=== PATIENT | female | born 1950 | race Caucasian/White ===

== ENCOUNTER 2018-07-18 14:49 | Inpatient (IN) | payer OTHER ==
[~2018-07-18] VITALS: Ht 152.4 cm; Wt 45.0 kg
[2018-07-18] VITALS (18 sets, daily range): BP systolic 77–153; BP diastolic 29–75
[2018-07-18 15:12] LABS: HEMATOCRIT 33.5 % (37.0-47.0); HEMOGLOBIN 10.7 gm/dL (12.0-15.0); MCH 31.9 pg (26.0-34.0); MCV 99.5 fL (80.0-100.0); PLATELET COUNT 310 thou/uL (150-400); RBC 3.37 mil/uL (4.20-5.00); RDW 19.8 % (10.5-14.5); WBC 4.8 thou/uL (4.0-11.0)
[2018-07-18 15:15] LABS: BE(vivo) -2.6 mmol/L (-2 to +3); HCO3 21.1 mmol/L (22.0-26.0); PCO2 32.7 mmHg (35.0-45.0); pH 7.427 (7.360-7.450)
[2018-07-18 15:16] LABS: PO2 45.3 mmHg (80.0-100.0)
[2018-07-18 15:33] LABS: ABSOLUTE NEUTROPHILS 3.2 thou/uL (1.4-8.2); INR 1.4; METAMYELOCYTES 1 %; PROTIME 14.6 Seconds (9.3-11.4)
[2018-07-18 15:35] LABS: ANISOCYTOSIS 2+
[2018-07-18 15:37] LABS: CALCIUM 9.5 mg/dL (8.5-10.1); CREATININE 2.8 mg/dL (0.6-1.0); POTASSIUM 4.4 mmol/L (3.5-5.1)
[2018-07-18 15:45] LABS: ALBUMIN 2.4 g/dL (3.4-5.0); DIRECT BILIRUBIN 0.2 mg/dL (<0.1-0.3); TOTAL BILIRUBIN 0.3 mg/dL (<0.1-1.0); TOTAL PROTEIN 7.4 g/dL (6.4-8.2); TROPONIN-I 0.43 ng/mL (<0.06)
[2018-07-18 15:54] LABS: URINE BILIRUBIN NEGATIVE (Negative); URINE BLOOD 2+ (Negative); URINE CLARITY CLEAR; URINE COLOR YELLOW; URINE GLUCOSE-RANDOM* 1+ (Negative); URINE KETONES NEGATIVE (Negative); URINE NITRITE-REFLEX NEGATIVE (Negative); URINE PROTEIN (DIPSTICK) 2+ (Negative); URINE UROBILINOGEN 0.2 E.U./dl (0.2-1.0)
[2018-07-18 15:57] LABS: URINE LEUKOCYTES-REFLEX 2+ (Negative)
[2018-07-18] MEDS ORDERED: MEGESTROL400 MG/11 PO (16:05)
[2018-07-18] MEDS ORDERED: ALPHAGAN P5 ML OPHTHALMIC (16:05)
[2018-07-18 16:06] LABS: CASTS None Seen /LPF (None Seen); SQUAMOUS 0-3 Few /LPF (0-3); URINE WBC-REFLEX >25 Many /HPF (0-5)
[2018-07-18] MEDS ORDERED: MOXEZA3 ML OPHTHALMIC (16:06)
[2018-07-18] MEDS ORDERED: ROCALTROL0.25 MCG PO (16:06)
[2018-07-18 16:07] LABS: AMORPHOUS URATES Many /LPF (None Seen); URINE RBC 3-10 Few /HPF (0-2)
[2018-07-18] MEDS ORDERED: PROBIOTIC1 EAC1 PO (16:07)
[2018-07-18] MEDS ORDERED: PROTONIX 20 MG20 M1 PO (16:07)
[2018-07-18] MEDS ORDERED: NEPHRO-VITE RX1 TA1 PO (16:07)
[2018-07-18] MEDS ORDERED: COREG25 MG PO (16:07)
[2018-07-18] MEDS ORDERED: COUMADIN 1MG TAB1 M1 PO (16:07)
[2018-07-18] MEDS ORDERED: LORATIDINE 10 M10 M1 PO (16:08)
[2018-07-18] MEDS ORDERED: LOPERAMIDE 2 MG2 M1 PO (16:08)
[2018-07-18] MEDS ORDERED: RENVELA800 MG PO (16:08)
[2018-07-18] MEDS ORDERED: TESSALON PERLE100 MG PO (16:08)
[2018-07-18] MEDS ORDERED: TOBREX3.5 GM OPHTHALMIC (16:09)
[2018-07-18] MEDS ORDERED: LUMIGAN2.5 M1 OPHTHALMIC (16:10)
--- NOTE | 2018-07-18 16:44 | NUR ---
IV TEAM PAGED FOR PICC PLACEMENT
--- NOTE | 2018-07-18 16:45 | NUR ---
ALONSOVEDA [phone]
--- NOTE | 2018-07-18 20:40 | NUR ---
Pt arrived ICU via cart, accompanied by ER staff and RT to room 243 around 8.20 pm. She being admit for Respiratory failure and A-fib with RVR. She is current on vent. She is off sedation , able to follow some commands. Left side hemiparesis notes from recent CVA. A-fib with RVR, cardizem is off due to hypotension. Poor IV access notes, only 1 IV on Rt hand is working. Per report IV team wasn't able to place any central line. Rt chest tunnel dialysis cath notes, will ask Quintin Tripathi if we can use it for tonight. Hx obtained from her Son who is her DPOA. Assessment completed. Care plans are initiated, continue working toward of goals.
--- NOTE | 2018-07-18 22:01 | NUR ---
VASCULAR ACCESS CONSULTED FOR VASCULAR ACCESS ON THIS PT WITH AN HD CATH IN HER RT SUBCLAVIAN. SHE HAS HAD A LT CVA WITH RESIDUAL. PT HAD EJ ATTEMPTS PRIOR TO MY ARRIVAL WITH INFILTRATIONS. PT IS NOT A PICC CANDIDATE DUE TO HER HX. DAUGHTER CONSENTED TO A CL PLACEMENT. PER HOSPITAL P&P HER RT IJ WAS ATTEMPTED X1, RT EJ X1 AND LT IJ X1 AND THE WIRE WOULD NOT THREAD, PT HAS MULTIPLE COLLATERAL VESSELS IN HER JUGULARS AND ATTEMPTS WERE ABORTED. PIV PLACED IN MRII, RT HAND, AND THE LT EJ LINE DISLODGED. PRESSURE HELD TO ABORTED AREAS. ADVISED.
[2018-07-18] MEDS ORDERED: TYLENOL325 MG PO (23:44)
[2018-07-19] VITALS (82 sets, daily range): BP systolic 79–193; BP diastolic 31–89
--- NOTE | 2018-07-19 04:30 | NUR ---
Pt remains on vent and lightly sedated with Versed gtt. Follow some commands intermittently this am. Continue to be on low dose of levophed gtt due to hypotension. RN attempted to wean it off w/o any success. No changes of cardiac rhythms. HR has been 80's to low 100's. Cardizem remains off this am. Continue to monitor her closely.
[2018-07-19 04:33] LABS: CALCIUM 9.2 mg/dL (8.5-10.1); CREATININE 3.4 mg/dL (0.6-1.0); POTASSIUM 4.6 mmol/L (3.5-5.1); TROPONIN-I 0.37 ng/mL (<0.06)
[2018-07-19 04:48] LABS: MCH 32.7 pg (26.0-34.0); MCHC 32.5 g/dL (28.0-37.0); MCV 100.9 fL (80.0-100.0); RBC 2.38 mil/uL (4.20-5.00); RDW 19.8 % (10.5-14.5); WBC 9.8 thou/uL (4.0-11.0)
[2018-07-19 05:14] LABS: HEMOGLOBIN 7.8 gm/dL (12.0-15.0)
--- NOTE | 2018-07-19 08:36 | EKG ---
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1950 Requested By: Nemesio Garduno Order Number: [id number] MD: Kosta Wheeler Measurements Intervals [place] Rate: 121 P: [place]: QRS: -65 QRSD: 115 T: 77 QT: 344 QTc: 488 Interpretive Statements Atrial fibrillation Ventricular premature complex Right bundle branch block Probable inferior infarct, age indeterminate No previous ECG available for comparison Electronically Signed On 07-19-2018 8:36:31 CDT by Kosta Wheeler [email or web address] ��������������������������������������������� <ELECTRONICALLY SIGNED> ���������������������������������������� By: Kosta Wheeler MD, [facility] ��������������������������������������������� 07/19/18 0836 1456 1456 Kosta Wheeler MD, [facility] /EPI
[2018-07-19 11:58] LABS: HEMATOCRIT 24.3 % (37.0-47.0); HEMOGLOBIN 7.6 gm/dL (12.0-15.0); MCH 31.6 pg (26.0-34.0); MCHC 31.1 g/dL (28.0-37.0); MCV 101.7 fL (80.0-100.0); RBC 2.39 mil/uL (4.20-5.00); RDW 19.9 % (10.5-14.5); WBC 12.3 thou/uL (4.0-11.0)
[2018-07-19 12:02] LABS: BE(vivo) -5.1 mmol/L (-2 to +3); HCO3 19.1 mmol/L (22.0-26.0); PCO2 31.7 mmHg (35.0-45.0); pH 7.398 (7.360-7.450); sO2 97.8 % (92.0-98.0)
[2018-07-19] MEDS ORDERED: TRAMADOL 50 MG50 MG PO (14:53)
[2018-07-19] MEDS ORDERED: LOSARTAN POTASS50 MG PO (14:53)
[2018-07-19] MEDS ORDERED: HUMALOG100 UNIT/1 SUBQ (14:53)
[2018-07-19] MEDS ORDERED: ARICEPT 5 MG TAB5 MG PO (14:54)
[2018-07-19] MEDS ORDERED: HYDRALAZINE 2525 MG PO (14:54)
[2018-07-19] MEDS ORDERED: FLONASE 0.05%50 MCG NASAL (14:55)
[2018-07-19] MEDS ORDERED: DILTIAZEM ER180 MG PO (14:55)
[2018-07-19] MEDS ORDERED: RENA-VITE TABL0.8 MG PO (14:56)
[2018-07-19] MEDS ORDERED: LANTUS SUBQ (14:56)
[2018-07-19] MEDS ORDERED: ZANTAC 150MG T150 MG PO (14:56)
--- NOTE | 2018-07-19 14:56 | 2DMMODE ---
[facility] [place] [address] 2 D/M-MODE ECHOCARDIOGRAM Name: GUILLERMINA JOSHI Room #: 243-P ADM IN M.R.#: [id number] ������������� Admission: 07/18/18 ������������� Attend Phys: Jose A Alonso MD Discharge: ��� ������������� ��� Date of : 46 Date of Service: 07/19/18 1456 �� Report #: [id number] �������� ��������������������������������������������[id number] THIS REPORT FOR: //name// APPROVED REPORT Study performed: 07/19/2018 09:55:24 EXAM: Comprehensive 2D, Doppler, and color-flow Echocardiogram Patient Location: ICU Room #: 243 Status: routine BSA: 1.40 HR: 82 bpm BP: 112/34 mmHg Rhythm: Atrial Fibrillation Other Information Study Quality: Adequate Indications Diabetes Atrial Fibrillation Hypertension/HDD 2D Dimensions IVSd: 12.22 (7-11mm) LVOT Diam: 16.41 (18-24mm) LVDd: 31.31 mm PWd: 12.55 (7-11mm) Ascending Ao: 20.32 (22-36mm) LVDs: 17.89 (25-40mm) Aortic Root: 24.87 mm IVC: 13.00 mm Aortic Valve AoV Peak Hai.: 1.37 m/s AO Peak Gr.: 7.48 mmHg LVOT Max P.10 mmHg LVOT Max V: 1.01 m/s KATIE Vmax: 1.57 cm2 Pulmonary Valve PV Peak Hai.: 1.24 m/s PV Peak Gr.: 6.20 mmHg Tricuspid Valve TR Peak Hai.: 2.89 m/s TR Peak Gr.: 33.55 mmHg PA Pressure: 44.00 mmHg [facility] [address] [address] 2 D/M-MODE ECHOCARDIOGRAM Name: GUILLERMINA JOSHI Room #: 243-P ADM IN .R.#: [id number] ������������� Admission: 07/18/18 ������������� Attend Phys: Jose A Alonso MD Discharge: ��� ������������� ��� Date of : 46 Date of Service: 07/19/18 1456 �� Report #: [id number] �������� ��������������������������������������������[id number] Left Ventricle The left ventricle is normal size. Mild concentric left ventricular hypertrophy. Left ventricular systolic function is hyperdynamic. LVEF is >70%. This study is not technically sufficient to allow evaluation of the LV diastolic function due to atrial fibrillation. Right Ventricle The right ventricle is normal size. The right ventricular systolic function is normal. Atria Left atrium is dilated. The right atrium size is normal. Aortic Valve The aortic valve is normal in structure. No aortic regurgitation is present. There is no aortic valvular stenosis. Mitral Valve The mitral valve is normal in structure. There is no mitral valve regurgitation noted. No evidence of mitral valve stenosis. Tricuspid Valve The tricuspid valve is normal in structure. There is trace tricuspid regurgitation. Estimated PAP 44 mmHg. There is moderate pulmonary hypertension. Pulmonic Valve The pulmonary valve is normal in structure. There is no pulmonic valvular regurgitation. Great Vessels The aortic root is normal in size. IVC is normal in size and collapses <50% with inspiration. Pericardium There is no pericardial effusion. <Conclusion> The left ventricle is normal size. LVEF is >70%. Left atrium is dilated. The aortic valve is normal in structure. The mitral valve is normal in structure. The mitral valve is normal in structure. The tricuspid valve is normal in structure. [facility] [place] [address] 2 D/M-MODE ECHOCARDIOGRAM Name: GUILLERMINA JOSHI Room #: 243-P ADM IN M.R.#: [id number] ������������� Admission: 07/18/18 ������������� Attend Phys: Jose A Alonso MD Discharge: ��� ������������� ��� Date of : 46 Date of Service: 07/19/181455 �� Report #: [id number] �������� ��������������������������������������������[id number] There is trace tricuspid regurgitation. Estimated PAP 44 mmHg. There is moderate pulmonary hypertension. The pulmonary valve is normal in structure. There is no pericardial effusion. ��������������������������������������������� <ELECTRONICALLY SIGNED> ���������������������������������������� By: Anibal Holman MD ��������������������������������������������� 07/19/18 1456 55 55 Anibal Holman MD /INF
--- NOTE | 2018-07-19 17:46 | NUR ---
PT IS AWAKE PALE FOLLOWS COMMANDS. GLAUCOMA NOTED TO EYES BILATERAL. LUNGS ARE DIMINISHED. AFIB ON THE [place]. MINIMAL OUTPUT. SMALL BOWEL MOVEMENT TODAY. ABDOMEN IS SOFT. BOWEL SOUNDS ACTIVE. HERRERA TO DD WITH CLEAR YELLOW URINE PRESENT. VERSED DRIP FOR SEDATION INFUSING . PT COMFORTALBE. RIGHT WRIST RESTRAINT. FAMILY AT BEDSIDE FOR SUPPORT. WILL CONTINUE TO ASSESS AND MONITOR PER NURSING.
[2018-07-20] VITALS (19 sets, daily range): BP systolic 90–157; BP diastolic 29–53
[2018-07-20 05:44] LABS: HEMATOCRIT 23.9 % (37.0-47.0); HEMOGLOBIN 7.7 gm/dL (12.0-15.0); MCH 31.6 pg (26.0-34.0); MCHC 32.3 g/dL (28.0-37.0); MCV 97.9 fL (80.0-100.0); RBC 2.44 mil/uL (4.20-5.00); RDW 19.6 % (10.5-14.5); WBC 8.7 thou/uL (4.0-11.0)
[2018-07-20 05:50] LABS: CALCIUM 8.7 mg/dL (8.5-10.1); POTASSIUM 5.5 mmol/L (3.5-5.1)
--- NOTE | 2018-07-20 05:56 | NUR ---
PT SEDATED ON VERSED. ABLE TO FOLLOW COMMANDS AND MOVE RIGHT EXTREMETIES ON SEDATION VACATION. NO APPARENT PAIN. VSS. AFEBRILE. AFIB ON THE MONITORS, RATES IN THE 70S. ON VENT, TOLERATING VENT SETTINGS. OG IN PLACE, OUTPUT NOTED. OUTPUT NOTED FROM HERRERA. FREQUENT TURNS AND ORAL CARE. FAMILY IN DURING THE NIGHT. WILL CONTINUE TO MONITOR PT.
[2018-07-20 05:58] LABS: CREATININE 4.5 mg/dL (0.6-1.0)
--- NOTE | 2018-07-20 08:43 | EKG ---
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 : 1950 Requested By: Susan Koehler Order Number: [id number] MD: Kosta Wheeler Measurements Intervals [place] Rate: 70 P: 0 DC: 153 QRS: 199 QRSD: 81 T: -15 QT: 293 QTc: 317 Interpretive Statements Atrial flutter with variable AV conduction Anterolateral infarct, age indeterminate Compared to ECG 07/18/2018 14:56:01 right bundle-branch block no longer present criteria for anterolateral infarct now present Electronically Signed On 07-20-2018 8:43:34 CDT by Kosta Wheeler [email or web address] ��������������������������������������������� <ELECTRONICALLY SIGNED> ���������������������������������������� By: Kosta Wheeler MD, [facility] ��������������������������������������������� 07/20/18 0843 6 6 Kosta Wheeler MD, [facility] /EPI
--- NOTE | 2018-07-20 08:54 | NUR ---
If tube feedings will start, recommend Nepro at goal of 35ml/hr
--- NOTE | 2018-07-20 10:01 | NUR ---
CM ASSESSMENT: CASE OPENED FOR DC PLANNING. CLINICAL INFO REVIEWED. PT ADMITTED AFTER BECOMING PULSELESS AFTER HEMODIALYSIS AT [facility], [place], HAD CPR AND PULSE RETURNED WITH AFIB RHYTHM. INTUBATED AND ON VENT. MET WITH PT'S SON/DPOA BETTE. PT WITH HX HTN, [facility], RA, RECENT EMBOLIC LEFT STROKE AND DOING SKILLED REHAB AT [facility]. PRIOR TO THAT, PT LIVING WITH SON BETTE AND HIS SPOUSE ALONSO Ahn [place] WAS AMBULATORY WITH A WALKER AND HOME O2 2 L NC PRN. PREVIOUS HOME HEALTH FROM [facility] AND BETTE INDICATES WOULD USES AGENCY AGAIN. [facility] PROVIDES TRANSPORTATION TO COMMUNITY DIALYSIS. BETTE IS AGREEABLE WITH RETURN TO [place] [facility]ILL[facility] WHEN MEDICALLY STABLE IF REMAINS APPROPRIATE. REQUESTED DC POWER DISTRIBUTOR UPDATE [facility]. NO W/E ED PLANNED.
[2018-07-20 16:08] LABS: BE(vivo) 3.8 mmol/L (-2 to +3); HCO3 27.1 mmol/L (22.0-26.0); PCO2 35.9 mmHg (35.0-45.0); PO2 89.6 mmHg (80.0-100.0); pH 7.495 (7.360-7.450); sO2 97.5 % (92.0-98.0)
[2018-07-20 17:43] LABS: INR 1.6
--- NOTE | 2018-07-20 19:17 | NUR ---
CPAP TRIAL TODAY AFTER DIALYSIS- DR GANN CALLED TO DISCUSS BLOOD GAS RESULTS. REPORTED TO SANJUANITA, UNABLE TO ASSESS COGNITION. PT DOES NOT FOLLOW COMMANDS FOR RN OR SON AT BEDSIDE. ORDERS PER SANJUANITA TO PLACE BACK ON AC AND SEDATE ON PROPOFOL AND ATTEMPT ANOTHER CPAP IN AM. UPDATED SON ON PLAN OF CARE. REPORT GIVEN TO BRIAN KEMP.
[2018-07-21] VITALS (24 sets, daily range): BP systolic 90–167; BP diastolic 41–72
--- NOTE | 2018-07-21 03:59 | NUR ---
ASSUMED CARE OF PATIENT AT 1900. VSS, AFEBRILE. UP TO CHAIR, PREFERS TO SLEEP IN IT. STATES PAIN IS MINIMAL, AT A 2. IS NOT NEEDING PAIN MEDS AT THIS TIME. UP WITH MINIMAL ASSIST TO THE BSC. ENCOURAGED TO COUGH AND DEEP BREATHE WELL USE INCENTIVE SPIROMETER. PATIENT CALLS OUT APPROPRIATELY. PROGRESSING TOWARDS POC GOALS.
--- NOTE | 2018-07-21 04:03 | NUR ---
ASSUMED CARE OF PATIENT AT 1900. VSS, AFEBRILE. SEDATION TURNED OFF DURING ASSESSMENT. PT DOES NOT FOLLOW COMMANDS, BUT DOES RAISE RIGHT ARM SPONTANEOUSLY. VERY DIFFICULT TO ASSESS OTHER ABILITIES SHE IS LEGALLY BLIND AND HARD OF HEARING. FAMILY IN TO VISIT, UPDATED ON POC. ALL QUESTIONS ANSWERED. PLANS FOR CPAP TRIAL DURING THE DAY. WILL CONTINUE TO MONITOR.
[2018-07-21 05:30] LABS: HEMOGLOBIN 7.5 gm/dL (12.0-15.0); MCH 31.7 pg (26.0-34.0); MCHC 32.6 g/dL (28.0-37.0); MCV 97.4 fL (80.0-100.0); RBC 2.36 mil/uL (4.20-5.00); RDW 18.9 % (10.5-14.5); WBC 6.6 thou/uL (4.0-11.0)
[2018-07-21 05:42] LABS: INR 1.6; PROTIME 16.7 Seconds (9.3-11.4)
[2018-07-21 05:45] LABS: CALCIUM 8.5 mg/dL (8.5-10.1); POTASSIUM 3.7 mmol/L (3.5-5.1)
[2018-07-21 05:48] LABS: CREATININE 2.3 mg/dL (0.6-1.0)
[2018-07-21 05:51] LABS: ALBUMIN 1.6 g/dL (3.4-5.0); DIRECT BILIRUBIN < 0.1 mg/dL (<0.1-0.3); SGOT 14 U/L (15-37); SGPT 11 U/L (30-65); TOTAL BILIRUBIN 0.3 mg/dL (<0.1-1.0); TOTAL PROTEIN 5.5 g/dL (6.4-8.2)
--- NOTE | 2018-07-21 17:24 | HC ---
[facility] [place] [address] CONSULTATION Name: GUILLERMINA JOSHI Room #: 243-P ADM IN M.R.#: [id number] Admission: 07/18/18 ������������������ Attend Phys: Jose A Alonso MD Discharge: ������������������ Date of : 48 Report #: [id number] THIS REPORT FOR: //name// CC: Jose A RANGEL PCP DATE OF SERVICE: 07/19/2018 PULMONARY CONSULTATION REFERRING PHYSICIAN: Dr. Aolnso. REASON FOR REFERRAL: Cardiac arrest. HISTORY OF PRESENT ILLNESS: The patient is a 68-year-old white female, with end-stage renal disease, brought to the ED following an apparent cardiac arrest at the outpatient dialysis center at [facility]. A pulmonary consultation was requested. According to the family, the patient has had trouble with syncopal episodes during dialysis in the past, but she has never had a cardiac arrest. According to the records, the patient was found to be apneic and pulseless following outpatient dialysis. CPR was given for about a minute. EMS was called. She was found to have pulse, agonal respiration. She was intubated on the field and subsequently brought to the Emergency Department. Her blood pressure at that time was around 130/88 mmHg with a pulse of 130, telemetry showing atrial fibrillation with rapid ventricular response. Blood glucose level was 274. Currently, she is now unresponsive, intubated. PAST MEDICAL HISTORY: Notable for diabetes mellitus type 2, end-stage renal disease, undergoing hemodialysis, apparently she does make some urine; hypertension, history of CVA, anemia, on chronic anticoagulation. She normally gets her care at [facility]; therefore, medical history is somewhat incomplete. PAST SURGICAL HISTORY: As mentioned above. ALLERGIES: TYLENOL NO. 3, STATINS, REACTIONS NOT SPECIFIED. MEDICATIONS: Her medications from home were reviewed, which includes Alphagan, Megace, Rocaltrol, Moxeza, Coreg, Nepro, Coumadin, Protonix, probiotic, Renvela, Imodium, Tessalon Perles, loratadine, Tobrex, Lumigan, Tylenol p.r.n. [facility] [address] [place] [address] CONSULTATION Name: GUILLERMINA JOSHI Room #: 243-P [facility] IN M.R.#: [id number] Admission: 07/18/18 ������������������ Attend Phys: Jose A Alonso MD Discharge: ������������������ Date of : 48 Report #: [id number] FAMILY HISTORY: Noncontributory. SOCIAL HISTORY: Unknown. REVIEW OF SYSTEMS: Deferred as the patient is intubated. PHYSICAL EXAMINATION: GENERAL: She is unresponsive at this time. VITAL SIGNS: Temperature is 99 degrees Fahrenheit, pulse is 75, respiratory rate is 20, blood pressure is 100/40 mmHg. She was hypotensive on admission with a systolic BP in the low 80s, saturation 100%. HEENT: Normocephalic, atraumatic. She is orally intubated. NECK: Supple, without lymphadenopathy or thyromegaly. CHEST: Breath sounds are clear with few scattered crackles in the bases. No wheezes. CARDIOVASCULAR: Normal S1, S2. There are no murmurs or gallop. There is no JVD. There is no carotid bruit. Pulses are 2+/4+ bilaterally. ABDOMEN: Soft, nontender, no organomegaly or masses felt. GENITOURINARY: Deferred. RECTAL: Deferred. EXTREMITIES: There is no edema, cyanosis or clubbing. NEUROLOGIC: Deferred as the patient is not responsive at this time. LABORATORY DATA: Portable chest x-ray shows clear lung jack. CT chest angiogram shows no evidence of pulmonary embolus, mild bilateral ground glass opacities seen consistent with pulmonary edema. Lactic acid is 1.3. CT head is notable for large right middle cerebral artery infarct, no acute process seen. C-spine is notable for degenerative changes, otherwise no acute fracture. Troponin 0.4. Influenza A and B swab is negative. Echocardiogram was grossly unremarkable, ejection fraction of 70%. No obvious valvular abnormalities. No evidence of intracardiac air. Pulmonary pressure measured at 44. EKG shows atrial fibrillation, ventricular premature complexes, right bundle branch block. Electrolytes: Sodium 137, potassium 4.6, chloride 103, CO2 is 21, BUN is 33, creatinine is 3.4. Liver enzymes are grossly unremarkable. WBC 12,300, hemoglobin 7.6, platelets normal. Arterial blood gas revealed pH 7.39, pCO2 of 30, pO2 130 on FiO2 of 30%. Albumin 2.4. IMPRESSION: 1. Cardiac arrest in this 68-year-old white female. She was found to be pulseless, apneic following the hemodialysis. CPR was given for about a minute. On the monitor, she was found to be in atrial fibrillation with rapid ventricular response. Etiology is unclear, but suspect volume depletion as a cause, vasovagal. An embolus is felt to be less likely given the echocardiogram findings. Pulmonary embolus appears to be less likely. The report suggests tiny pulmonary embolus [address] [address] CONSULTATION Name: GUILLERMINA JOSHI Room #: 243-P ADM IN M.R.#: [id number] Admission: 07/18/18 ������������������ Attend Phys: Jose A Alonso MD Discharge: ������������������ Date of : 48 Report #: [id number] in the right lower lung field, which is unlikely the cause for the cardiac arrest. Note, the patient has a history of syncopal episodes during dialysis related to hypotension, volume shift. 2. Acute respiratory failure due to above. Gas exchange so far has improved. Weaning trials when she is more stable. 3. Atrial fibrillation with rapid ventricular response. 4. End-stage renal disease, on chronic hemodialysis. 5. Elevated troponin, likely related to above process. No obvious acute ischemic changes. 6. Diabetes mellitus, type 2. 7. History of cerebrovascular accident, right cerebral artery with left-sided weakness. 8. Apparent history of chronic pancreatic mass has been present for the last 10 years according to records from [facility]. Has questionable liver lesions. Further workup per Gastroenterology. 9. Rheumatoid arthritis. RECOMMENDATION: We will continue mechanical ventilation, wean O2. Weaning trials once medically stable. Deep venous thrombosis and gastrointestinal prophylaxis recommended. Further review of the medical records suggests the patient had a cardiac catheterization at [facility] in January 2018, this was unremarkable. Currently, the patient is felt to have PEA, asystolic cardiac arrest. Currently, this will be addressed by cardiology. Thank you for this consultation. Critical care 1 hour. ��������������������������������������������� <ELECTRONICALLY SIGNED> ���������������������������������������� By: Hardik Gray MD ��������������������������������������������� 07/21/18 1724 1513 0714 Hardik Gray MD /nt
[2018-07-22] VITALS (18 sets, daily range): BP systolic 106–181; BP diastolic 43–74
--- NOTE | 2018-07-22 01:01 | NUR ---
ASSUMED CARE OF PATIENT AT 1900. VSS, AFEBRILE. SEDATION VACATION DONE. MUCH MORE ALERT AND RESPONSIVE TO FAMILY AT BEDSIDE. OPENS EYES, SQUEEZES RIGHT HAND. TOLERATING TUBE FEEDING WELL. BLOOD SUGARS CHECKED PER PROTOCOL. REMAINS ON VENT. WILL CONTINUE TO MONITOR.
[2018-07-22 05:43] LABS: HEMATOCRIT 23.8 % (37.0-47.0); HEMOGLOBIN 7.7 gm/dL (12.0-15.0); MCH 31.6 pg (26.0-34.0); MCHC 32.4 g/dL (28.0-37.0); MCV 97.5 fL (80.0-100.0); RBC 2.44 mil/uL (4.20-5.00); WBC 7.4 thou/uL (4.0-11.0)
[2018-07-22 05:50] LABS: POTASSIUM 3.4 mmol/L (3.5-5.1)
[2018-07-22 05:52] LABS: CREATININE 3.4 mg/dL (0.6-1.0)
[2018-07-22 05:54] LABS: INR 1.2; PROTIME 12.8 Seconds (9.3-11.4)
[2018-07-23] VITALS (55 sets, daily range): BP systolic 70–201; BP diastolic 32–77
--- NOTE | 2018-07-23 06:45 | NUR ---
END OF SHIFT SUMMARY: No significant changes in pt status. Remains a-fib, rate in 70's. On vent with FiO2 30%, sat > 95%. Insulin sliding scale increased to moderate dose as patient blood sugars consistently in 240's. Tolerating tube feeding well per OG, no residuals. No stools this shift. 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
--- NOTE | 2018-07-23 08:52 | EKG ---
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1950 Requested By: Kosta Wheeler Order Number: [id number] MD: Kosta Wheeler Measurements Intervals [place] Rate: 74 P: [place]: QRS: 171 QRSD: 90 T: 0 QT: 253 QTc: 281 Interpretive Statements Atrial fibrillation Anterolateral infarct, age indeterminate Compared to ECG 07/20/2018 08:17:00 No significant change was found Electronically Signed On 07-23-2018 8:51:50 CDT by Kosta Wheeler [email or web address] ��������������������������������������������� <ELECTRONICALLY SIGNED> ���������������������������������������� By: Kosta Wheeler MD, [facility] ��������������������������������������������� 07/23/18 0851 0828 7 Kosta Wheeler MD, [facility] /EPI
--- NOTE | 2018-07-23 13:37 | NUR ---
VASCULAR ACCESS ROUNDS- THIS PATIENT CONTINUES IN THE ICU ON MULTIPLE IV MEDS INCLUDING LEVOPHED. LINE CONTINUES TO BE APPROPRIATE AT THIS TIME
[2018-07-23 13:45] LABS: BE(vivo) 2.9 mmol/L (-2 to +3); HCO3 25.9 mmol/L (22.0-26.0); PO2 106.5 mmHg (80.0-100.0); pH 7.499 (7.360-7.450); sO2 98.3 % (92.0-98.0)
--- NOTE | 2018-07-23 16:20 | NUR ---
SHIFT SUMMARY: ONT THE VENT WAS LIGHTLY SEDATED. COMPLETED HEMODIALYSIS THIS MORNING, TOWARDS THE END OF TREATMENT BECAME HYPOTENSIVE AND WAS ON LEVOPHED FOR A FEW HOURS, ABLE TO WEAN IT OFF. TUBEFEEDING PER OGT AND TOLERATING WELL. AWAKENS AND NODS AND FOLLOWS SIMPLE COMMANDS. CPAP FOR 5HRS TODAY, BECAME TACHYPNIC TOWARDS THE END. WILL CONTINUE TO MONITOR CLOSELY.
[2018-07-24] VITALS (44 sets, daily range): BP systolic 99–145; BP diastolic 34–102
[2018-07-24 05:11] LABS: ALBUMIN 1.8 g/dL (3.4-5.0); CREATININE 3.4 mg/dL (0.6-1.0); PHOSPHORUS 2.8 mg/dL (2.5-4.9); POTASSIUM 3.7 mmol/L (3.5-5.1)
--- NOTE | 2018-07-24 07:31 | NUR ---
PT REMAINS ON THE VENT,DROWSY WITH NO SEDATION, EASILY AROUSABLE, FOLLOWS COMMANDS, AND ANSWERS TO YES/NO QUESTIONS. LEVOPHED AT 1.5MCG. TUBE FEEDING AT GOAL 35ML, NO RESIDUALS .HERRERA NO URINE OUTPUT. RESTRAINTS AND ISOLATION PRECAUTIONS MAINTAINED.
--- NOTE | 2018-07-24 08:34 | EKG ---
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 : 1950 Requested By: Kosta Wheeler Order Number: [id number] MD: Zachariah Esparza Measurements Intervals [place] Rate: 80 P: [place]: QRS: 200 QRSD: 83 T: -7 QT: 373 QTc: 431 Interpretive Statements Atrial flutter Anterolateral infarct, old Compared to ECG 07/23/2018 08:28:07 Atrial fibrillation no longer present Myocardial infarct finding still present Electronically Signed On 07-24-2018 8:34:41 CDT by Zachariah Esparza [email or web address] ��������������������������������������������� <ELECTRONICALLY SIGNED> ���������������������������������������� By: Zachariah Esparza MD ��������������������������������������������� 07/24/18 0834 3 3 Zachariah Esparza MD /ANGEL
[2018-07-24 11:11] LABS: BE(vivo) 3.8 mmol/L (-2 to +3); HCO3 27.5 mmol/L (22.0-26.0); PCO2 37.7 mmHg (35.0-45.0); PO2 108.9 mmHg (80.0-100.0); pH 7.481 (7.360-7.450); sO2 98.3 % (92.0-98.0)
--- NOTE | 2018-07-24 17:42 | NUR ---
SHIFT SUMMARY: ON THE VENT, NO SEDATION AND IS CALM AWAKENS WHEN NAME IS CALLED AND NODS TO Y/N QNS. LEVO WEANED OFF THIS AFTERNOON. TOLERATING TUBEFEEDING W/O RESIDUALS. CPAP TRIAL TODAY. SHARON MORALES'Ngoc EARLIER TODAY. FAMILY UPDATED ON POC. WILL CONTINUE TO MONITOR.
[2018-07-25] VITALS (60 sets, daily range): BP systolic 98–200; BP diastolic 32–85
[2018-07-25 05:12] LABS: MCH 31.7 pg (26.0-34.0); MCHC 32.9 g/dL (28.0-37.0); MCV 96.2 fL (80.0-100.0); RBC 1.94 mil/uL (4.20-5.00); RDW 19.1 % (10.5-14.5); WBC 10.8 thou/uL (4.0-11.0)
[2018-07-25 05:14] LABS: HEMATOCRIT 18.7 % (37.0-47.0); HEMOGLOBIN 6.2 gm/dL (12.0-15.0)
[2018-07-25 05:15] LABS: INR 1.2; PROTIME 12.3 Seconds (9.3-11.4)
[2018-07-25 05:20] LABS: ALBUMIN 1.7 g/dL (3.4-5.0); CREATININE 4.3 mg/dL (0.6-1.0); PHOSPHORUS 3.5 mg/dL (2.5-4.9); POTASSIUM 3.8 mmol/L (3.5-5.1)
[2018-07-25 05:48] LABS: BE(vivo) 2.3 mmol/L (-2 to +3); HCO3 25.8 mmol/L (22.0-26.0); PCO2 34.8 mmHg (35.0-45.0); PO2 110.8 mmHg (80.0-100.0); pH 7.488 (7.360-7.450); sO2 98.4 % (92.0-98.0)
--- NOTE | 2018-07-25 08:53 | EKG ---
[address] [address] ELECTROCARDIOGRAM REPORT Name: GUILLERMINA JOSHI Room #: 243-P ADM IN M.R.#: [id number] ������������������ Admission: 07/18/18 ������������������ Attend Phys: Jose A Alonso MD Discharge: ������������������ Date of : 46 Report #: [id number] ����������������������������������������������������������������� [id number] THIS REPORT FOR: //name// 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1950 Requested By: Kosta Wheeler Order Number: [id number] MD: Zachariah Esparza Measurements Intervals [place] Rate: 73 P: CT: QRS: -18 QRSD: 93 T: 184 QT: 466 QTc: 514 Interpretive Statements Atrial fibrillation Borderline left axis deviation Possible lateral ischemia Prolonged QT interval Compared to ECG 07/24/2018 07:44:36 Electronically Signed On 07-25-2018 8:53:12 CDT by Zachariah Esparza [email or web address] ��������������������������������������������� <ELECTRONICALLY SIGNED> ���������������������������������������� By: Zachariah Esparza MD ��������������������������������������������� 07/25/18 0853 1 1 Zachariah Esparza MD /ANGEL
--- NOTE | 2018-07-25 11:16 | HC ---
[facility] [place] [address] CONSULTATION Name: GUILLERMINA JOSHI Room #: 243-P ADM IN M.R.#: [id number] Admission: 07/18/18 ������������������ Attend Phys: Jose A Alonso MD Discharge: ������������������ Date of : 48 Report #: [id number] THIS REPORT FOR: //name// CC: Jose A Alonso NO PCP REASON FOR CONSULTATION: End-stage renal disease. REASON FOR PRESENTATION: Post collapse after finishing her dialysis in unit. HISTORY OF PRESENT ILLNESS: This is a 68-year-old who dialyzes every Monday, Monday and Monday at the [facility]. Details of the history are not available given the patient's mental status. I am not really sure about her past medical history, but it looks like that the patient has been maintained on dialysis every Monday, Monday and Monday for some time. The patient was found in agonal respiratory status with some pulse. She was intubated. Blood pressure on arrival was 130/88, heart rate was 130. She was in AFib. Blood sugar was 274. The details of the history are not available given the fact that the patient is currently intubated. I am consulted to manage her end-stage renal disease. She is known to have AFib, flutter, ESRD and maintained on dialysis. She is also known to have rheumatoid arthritis. CTA of the chest revealed possible pancreatic tail mass with some liver lesions. She had pathological size mediastinal adenopathy with potential tiny lung pulmonary embolism. PAST MEDICAL HISTORY: 1. End-stage renal disease. 2. AFib and flutter. 3. Hyperlipidemia. 4. Hypertension. 5. CVA. 6. Status post code 31 minute. REVIEW OF SYSTEMS: Unobtainable given the patient's mental status. SOCIAL HISTORY: She resides in the [facility]. No reported drug or alcohol abuse. FAMILY HISTORY: Unobtainable given the patient's mental status. REVIEW OF SYSTEMS: Unobtainable given the patient's mental status. ADDITIONAL PAST MEDICAL HISTORY: 1. Rectus sheath hematoma. 2. Legal blindness. 3. Brain aneurysm post-clipping. 4. Chronic pancreatitis. [facility] [address] [address] CONSULTATION Name: GUILLERMINA JOSHI Room #: 243-P [facility] IN .R.#: [id number] Admission: 07/18/18 ������������������ Attend Phys: Jose A Alonso MD Discharge: ������������������ Date of : 48 Report #: [id number] PHYSICAL EXAMINATION: GENERAL: She is intubated and sedated. VITAL SIGNS: Most recent vitals revealed a blood pressure of 111/34 on a low dose of Levophed, pulse rate is 98. HEAD AND NECK: ET tube in place. CHEST: Decreased air entry bilaterally. CARDIOVASCULAR: No rub. ABDOMEN: Soft, nontender. LOWER EXTREMITIES: No edema. LABORATORY VALUES: Hemoglobin is down to 7.8. Blood gas showed an O2 sat of 77, pCO2 of 45. White blood cell count was 9.8. Sodium was 137, potassium was 4.6, BUN was 33, creatinine 3.4. Troponin was mildly elevated. Cultures are pending. ASSESSMENT, IMPRESSION, PLAN: 1. End-stage renal disease. 2. Post arrest. 3. Elevated troponin. 4. Respiratory failure. 5. Chronic pancreatitis. 6. Cerebrovascular accident. 7. Pancreatic tail mass, chronic. 8. We will continue to dialyze the patient every Monday, Monday and Monday. It does look like that her event was PEA, asystole; however, she responded very well to our CPR and reverted to sinus rhythm with good blood pressure in less than one minute. Cardiology is following and managing her rhythm issues. She is maintained on low dose Levophed and we will wean off. Pulmonary will manage her vent issues. ��������������������������������������������� <ELECTRONICALLY SIGNED> ���������������������������������������� By: Ab Santamaria MD ��������������������������������������������� 07/25/18 1116 0919 2238 David Lugo MD /nt
[2018-07-25 12:35] LABS: HEMATOCRIT 21.7 % (37.0-47.0); HEMOGLOBIN 7.5 gm/dL (12.0-15.0)
[2018-07-25 17:51] LABS: HEMOGLOBIN 6.9 gm/dL (12.0-15.0)
[2018-07-25 17:54] LABS: HEMATOCRIT 19.8 % (37.0-47.0)
--- NOTE | 2018-07-25 19:15 | NUR ---
SHIFT SUMMARY: PT PROGRESSING. PT ON CPAP TRIAL FOR SEVERAL HOURS, WELL TOLERATED. REPLACED ON ASSIST CONTROL PER RESPIRATORY THERAPIST. WHEN SUCTIONED WHILE ON CPAP, PT HAD LARGE AMOUNT THIN BLOOD SECRETION FROM ETT. AFIB, TOLERATING TUBE FEEDING, DURING DIALYSIS- PRBC 1 UNIT ADMINISTERED BY WALTER, TOLERATING TUBE FEEDING, NO RESIDUALS. AUTOMOTIVE SALESPERSON AND 350CC FLUID REMOVED, INCONTINENT OF SMALL AMOUNT PINK URINE X 3, LARGE LIGHT BROWN/YELLOWISH STOOL. SEE ASSESSMENT FOR FURTHER DETAILS. REPEAT HG 6.9/HCT 19.8, CALLED TO DR. ROACH. ADDITIONAL PRBC UNIT ORDERED. FAMILY UPDATED DURING SHIFT ON PT STATUS.
[2018-07-25 22:55] LABS: BE(vivo) 3.2 mmol/L (-2 to +3); HCO3 26.4 mmol/L (22.0-26.0); PCO2 34.9 mmHg (35.0-45.0); PO2 106.3 mmHg (80.0-100.0); pH 7.496 (7.360-7.450); sO2 98.3 % (92.0-98.0)
[2018-07-26] VITALS (56 sets, daily range): BP systolic 99–228; BP diastolic 34–78
[2018-07-26 06:54] LABS: HEMATOCRIT 26.5 % (37.0-47.0); MCH 30.3 pg (26.0-34.0); MCHC 34.6 g/dL (28.0-37.0); RBC 3.03 mil/uL (4.20-5.00); RDW 19.9 % (10.5-14.5); WBC 9.1 thou/uL (4.0-11.0)
[2018-07-26 06:55] LABS: HEMOGLOBIN 9.2 gm/dL (12.0-15.0); MCV 87.5 fL (80.0-100.0)
[2018-07-26 07:15] LABS: INR 1.5; PROTIME 15.4 Seconds (9.3-11.4)
[2018-07-26 07:17] LABS: ALBUMIN 1.8 g/dL (3.4-5.0); CALCIUM 8.8 mg/dL (8.5-10.1); PHOSPHORUS 3.1 mg/dL (2.5-4.9); POTASSIUM 3.9 mmol/L (3.5-5.1)
[2018-07-26 07:20] LABS: CREATININE 2.8 mg/dL (0.6-1.0)
--- NOTE | 2018-07-26 07:23 | NUR ---
PATIENT IS SLOWLY PROGRESSING IN HER CARE PLAN. VITAL SIGNS STABLE WITH NURSE NOT PERCEIVING ANY PAIN OR NAUSEA ON BEHALF OF PATIENT. BREATHING STABLE ON VENTILATOR EVIDENCED BY OXYGEN SATURATION READINGS OPTIMAL RANGE THROUGHOUT SHIFT. VENTILATOR CARE PROVIDED PER PROTOCOL. PATIENT IS ABLE TO OPEN EYES AND COMMUNICATE WITH BASIC YES/NO HEAD MOVEMENTS. BLOOD TRANSFUSION PROVIDED EARLY IN SHIFT TO GOOD AFFECT. CONTINUOUS TUBE FEED TOLERATED. PATIENT WAS TURNED FREQUENTLY AND PROVIDED BATH AND LINEN CHANGE THIS MORNING. CONTINUE PLAN OF CARE.
[2018-07-26 09:17] LABS: BE(vivo) 4.3 mmol/L (-2 to +3); HCO3 28.3 mmol/L (22.0-26.0); PCO2 39.8 mmHg (35.0-45.0); sO2 89.2 % (92.0-98.0)
[2018-07-26 09:19] LABS: PO2 52.5 mmHg (80.0-100.0)
[2018-07-26 09:30] LABS: BE(vivo) 3.4 mmol/L (-2 to +3); HCO3 26.7 mmol/L (22.0-26.0); PCO2 35.5 mmHg (35.0-45.0); pH 7.494 (7.360-7.450); sO2 98.2 % (92.0-98.0)
[2018-07-26 10:08] LABS: % SATURATION 49 % (20-39); IRON 57 ug/dL (50-170); TIBC 116 ug/dL (250-450)
--- NOTE | 2018-07-26 10:41 | NUR ---
FOLLOWIING FOR DC PLANNING. CLINICAL INFO REVIEWED. PT REMAINS INTUBATED WITH DAILY CPAP TRIALS. VERY DEBILITATED. AWAKE AND FOLLOWS COMMANDS. CONITNUING HD M-W-. REQUEST DC APARTMENT COMMUNITY MANAGER FAX CLINICAL UPDATE TO [facility] PT FROM SKILLED REHAB AT [facility]. SPOKE WITH PT'S SON/DPSUMAN AMOS BRIEFLY THIS AM.
[2018-07-26 11:03] LABS: FOLIC ACID 19.8 ng/mL (8.6-58.9)
--- NOTE | 2018-07-26 14:39 | NUR ---
FAXED CLINICAL UPDATE TO [facility] WITH SHERLY IN ADM. THAT UPDATE FAXED. DCP TO FOLLOW.
--- NOTE | 2018-07-26 16:29 | NUR ---
PT IS ALERT AND EXTUBATED TODAY. FAMILY AT BEDSIDE FOR SUPPORT. ON 40 PERCENT FACE SHIELD OXYGEN SATURATION 100 PERCENT. LUNGS ARE COARSE TO DIMINISHED. AND WHEEZY NOTED. AFIB ON THE COIL SHAPER. ONE LARGE YELLOW CAREY BOWEL MOVEMENT. SENT FOR OCCULT NLOOD TO LAB. PT IS BLIND WITH CATARACTS. RIGHT CHEST TESIO CATHETER. PAIN MEDS GIVEN FOR COMFORT GENERALIZED PAIN NOTED. OUT OF RESTRAINTS. WILL CONINTUE TO MONITOR AND ASSESS PER NURSING.
[2018-07-27] VITALS (30 sets, daily range): BP systolic 94–219; BP diastolic 26–91
--- NOTE | 2018-07-27 06:01 | NUR ---
PT APX1. MAKAH. UNABLE TO UNDERSTAND SPEECH AT TIMES. MEDICATED FOR PAIN. AFEBRILE. ON 3L NC, TOLERATING ACTIVITY. AFIB ON THE MONITOR, HR IN THE 120 AT TIMES, NOT SUSTAINED. NPO CURRENTLY, SPEECH CONSULTED. FREQUENT TURN AND ORAL CARE. NO COMPLAINS PRESENTLY. WILL CONTINUE TO MONITOR
[2018-07-27 06:17] LABS: INR 1.4; PROTIME 14.7 Seconds (9.3-11.4)
[2018-07-27 06:47] LABS: ALBUMIN 2.1 g/dL (3.4-5.0); CALCIUM 9.3 mg/dL (8.5-10.1); CREATININE 3.7 mg/dL (0.6-1.0); PHOSPHORUS 4.2 mg/dL (2.5-4.9); POTASSIUM 4.1 mmol/L (3.5-5.1)
[2018-07-27 08:07] LABS: HEMATOCRIT 28.9 % (37.0-47.0); HEMOGLOBIN 9.8 gm/dL (12.0-15.0); MCH 30.1 pg (26.0-34.0); MCHC 33.7 g/dL (28.0-37.0); MCV 89.3 fL (80.0-100.0); RBC 3.24 mil/uL (4.20-5.00); RDW 19.9 % (10.5-14.5); WBC 11.3 thou/uL (4.0-11.0)
--- NOTE | 2018-07-27 10:29 | NUR ---
FOLLOWING FOR DC PLANNING. CLINICAL INFO REVIEWED. PT EXTUBATED 07/26. HD TODAY. REMAIN VERY DEBILITATED. NEEDS PT/OT/ST MINO. NO WEEK END DC PLANNED A ND UPDATE TO [facility].
--- NOTE | 2018-07-27 14:03 | NUR ---
FAXED CLINICAL UPDATE TO [facility]POKE WITH SHERLY IN ADM. SHE RECEIVED UPDATE AND THAT JOLLY. ANDREW SUNDAY 07/30. DCP TO FOLLOW.
[2018-07-27 18:02] LABS: BE(vivo) 2.1 mmol/L (-2 to +3); PCO2 32.8 mmHg (35.0-45.0); PO2 68.5 mmHg (80.0-100.0); sO2 95.2 % (92.0-98.0)
--- NOTE | 2018-07-28 03:37 | NUR ---
ALERT TO SELF, KNOWS HER BIRTHDATE, BUT SOMETIMES SPEECH IS HARD TO UNDERSTAND. LEFT HEMIPARESIS, IRREGULAR PUPILS, HX OF GLAUCOMA. FOLLOW COMMANDS. AFIB ON THE MONITOR, PULSES 1+/1+. EDEMA 1+ ON BOTH HANDS. WHEEZY, COARSE TO RONCHI ON BOTH UPPER LOBES, DIMINISHED ON BOTH LOWER LOBES. 02 AT 2L/NC. DENIES PAIN. BM NOTED. MAINTAINED ON ASPIRATION PRECAUTION. RIGHT SUBCLAVIAN DILAYSIS CATH C/D/I. LEFT IJ TRIPLE LUMEN DRAWS BLOOD AND FLUSHES WELL. REDNESS ON THE COCCYX NOTED. TURNED TO SIDES. PERIANAL CARE DONE. ORAL CARE DONE. 00:20>WHEEZY, LABORED BREATHING. BREATHING TREATMENT DONE BY RT 02:46>BS 35. D50 GIVEN. APPLE JUICE AND APPLE SAUCE GIVEN 03:13>BS 222. FF UP POC.
[2018-07-28 04:14] LABS: HEMATOCRIT 25.6 % (37.0-47.0); HEMOGLOBIN 8.7 gm/dL (12.0-15.0); MCH 30.1 pg (26.0-34.0); MCHC 33.9 g/dL (28.0-37.0); MCV 88.8 fL (80.0-100.0); RBC 2.88 mil/uL (4.20-5.00); WBC 13.4 thou/uL (4.0-11.0)
[2018-07-28 04:24] LABS: CALCIUM 8.8 mg/dL (8.5-10.1); PHOSPHORUS 3.7 mg/dL (2.5-4.9); POTASSIUM 4.1 mmol/L (3.5-5.1); PROTIME 23.8 Seconds (9.3-11.4)
[2018-07-28 04:31] LABS: CREATININE 2.4 mg/dL (0.6-1.0); INR 2.3
[2018-07-28 08:00] VITALS: BP 161/69
[2018-07-28 11:19] VITALS: BP 107/39
[2018-07-28 16:39] VITALS: BP 137/36
[2018-07-28 19:08] VITALS: BP 144/74
[2018-07-29 00:13] VITALS: BP 143/65
--- NOTE | 2018-07-29 03:47 | NUR ---
ASSUMED CARE AT 1900; PT. SLEEPING; NO RELATIVES AT BED SIDE; DURING ASSESSMENT PT. ALERT TO PERSON; REFUSED TAKING PO MEDICATION; EXPLAINED THE NEED OF PO MEDICATION ORDER; ABLE TO HAVE MOST PART OF PO MEDICATION; AROUND 2200 SON AT BED SIDE; EDUCATED ABOUT THE NEED OF KEEPING DOOR OPEN; ST. UNDERSTANDING; AT MIDNIGHT BS 173; SON REFUSED INSULIN; ST. PT. USUALLY RUNS HIGH AND 173 IS LOW FOR HER BASELINE THEREFORE HE RATHERS NOT TO GIVE INSULIN; PT. HAD 2 BM; ABLE TO REST DURING THE NIGHT; ASSESSMENT CHARGED; FOLLOWING POC; WILL PASS ON REPORT.
[2018-07-29 04:12] VITALS: BP 150/52
[2018-07-29 05:20] LABS: INR 3.2; PROTIME 33.3 Seconds (9.3-11.4)
[2018-07-29 09:10] VITALS: BP 140/55
[2018-07-29 11:30] VITALS: BP 117/59
[2018-07-29 16:33] VITALS: BP 132/54
[2018-07-29 19:25] VITALS: BP 156/62
--- NOTE | 2018-07-29 19:53 | NUR ---
ASSUMED CARE OF PT AT 0700. PT ALERT ORIENTED TO SELF. PT WAS DIFFICULT TO UNDERSTAND BUT BETTER WHEN DENTURES PUT IN. PT HAS POOR APETITE AND NUTRITIONAL SUPPLEMENT ORDERED - NEPRO. PT ENCOURAGED TO EAT AND DRINK. PT VITALS WITHIN NORMAL LIMITS AND PT WAS AFIB WITH CONTROLLED RATE ON TELEMETRY. PT WORKED WITH PHYSICAL THERAPY TODAY AND DANGLED ON SIDE OF BED WITH MAX ASSIST. FAMILY AT THE BEDSIDE AND VERY INVOLVED IN PATIENT CARES. WILL CONT WITH POC.
--- NOTE | 2018-07-29 21:16 | EKG ---
[address] [address] ELECTROCARDIOGRAM REPORT Name: GUILLERMINA JOSHI Room #: 216-P ADM IN M.R.#: [id number] ������������������ Admission: 07/18/18 ������������������ Attend Phys: Jose A Alonso MD Discharge: ������������������ Date of : 48 Report #: [id number] ����������������������������������������������������������������� [id number] THIS REPORT FOR: //name// [facility] Test Date: 2018-07-27 Test Time: 07:45:19 Pat Name: GUILLERMINA JOSHI Department: Room: 216 Gender: F Web Solutions Architect: NYDIA : 1950 Requested By: Zachariah Esparza Order Number: [id number] MD: Zachariah Esparza Measurements Intervals [place] Rate: 104 P: [place]: QRS: -18 QRSD: 90 T: 167 QT: 341 QTc: 449 Interpretive Statements Atrial flutter with predominant 2:1 AV block Abnormal R-wave progression, late transition Probable LVH with secondary repol abnrm Compared to ECG 07/25/2018 07:42:46 2:1 AV block now present Atrial fibrillation no longer present Possible ischemia no longer present Prolonged QT interval no longer present Electronically Signed On 07-29-2018 21:16:02 CDT by Zachariah Esparza [email or web address] ��������������������������������������������� <ELECTRONICALLY SIGNED> ���������������������������������������� By: Zachariah Esparza MD ��������������������������������������������� 07/29/18 2116 Zachariah Esparza MD /EPI
--- NOTE | 2018-07-30 04:26 | NUR ---
PT RESTING QUIETLY IN ROOM, TURNING Q 2 HRS AND NEEDED, VSS, SEVERAL SMALL BMS THRU THE NOC, NO C/O PAIN, DIALYSIS TODAY, FAMILY AT BEDSIDE OFFERING SUPPORT, WILL CON'T TO MONITOR PER PPOC.
[2018-07-30 05:51] VITALS: BP 157/76
[2018-07-30 06:07] LABS: HEMATOCRIT 24.3 % (37.0-47.0); HEMOGLOBIN 8.4 gm/dL (12.0-15.0); MCH 30.9 pg (26.0-34.0); MCHC 34.5 g/dL (28.0-37.0); MCV 89.5 fL (80.0-100.0); RBC 2.72 mil/uL (4.20-5.00); WBC 10.5 thou/uL (4.0-11.0)
[2018-07-30 06:53] LABS: ALBUMIN 2.1 g/dL (3.4-5.0); CALCIUM 8.4 mg/dL (8.5-10.1); CREATININE 4.7 mg/dL (0.6-1.0); PHOSPHORUS 5.6 mg/dL (2.5-4.9); POTASSIUM 3.8 mmol/L (3.5-5.1); TOTAL BILIRUBIN 0.4 mg/dL (<0.1-1.0); TOTAL PROTEIN 6.2 g/dL (6.4-8.2)
[2018-07-30 12:44] VITALS: BP 132/54
[2018-07-30 13:01] LABS: INR 2.9; PROTIME 30.4 Seconds (9.3-11.4)
[2018-07-30 16:00] VITALS: BP 129/43
--- NOTE | 2018-07-30 16:52 | NUR ---
FAXED CLINICAL UPDATE TO [facility]POKE WITH SHERLY IN ADM. SHE RECEIVED UPDATE AND WILL SUBMIT FOR AUTH FOR PT. TO COME TO THEIR FACILITY SKILLED. DCP TO FOLLOW.
--- NOTE | 2018-07-30 19:39 | NUR ---
PT DIRECT ADMIT FROM DR. ROCHA OFFICE. PT A&OX4, UP AD SONYA. PT VITALS WITHIN NORMAL LIMITS AND PT WAS AFIB CONTROLLED RATE IN 80'S. CALLED DIRECTOR CREDIT RISK AND ASKED IF OKAY TO GIVE METFORMIN TONIGHT. DR. SANTO WAS DIRECTOR CREDIT RISK AND SAID TO GIVE METFORMIN PT WILL NOT HAVE HEART CATH TOMORROW. ALSO ORDERED ACHS AND INSULIN LDSS. ADMISSION COMPLETED.
[2018-07-30 19:58] VITALS: BP 154/67
--- NOTE | 2018-07-30 20:07 | NUR ---
ASSUMED CARE OF PT AT 0700. PT RECEIVED DIALYSIS IN AM. WAS FATIGUED AFTER DIALYSIS TREATMENT. PT SHOW INCREASED SIGNS OF WEAKNESS. PT WAS ORIENTED TO SELF AND FOLLOWED COMMANDS BUT LETHARGIC. VITAL SIGNS SHOWED AN INCREASE IN BLOOD PRESSURE AND HEART RATE DURING DIALYSIS TREATMENT AND TREATMENT WAS SLOWED DOWN TO BRING VITAL SIGNS TO NORMAL. HEART RHYTHM WAS MAINTAINED A- FIB. PT DID NOT EAT BREAKFAST OR LUNCH, BUT ATE DINNER WITH ASSISTANCE BY NURSE WITH NO SIGNS OF ASPIRATION.
[2018-07-31] VITALS (7 sets, daily range): BP systolic 149–192; BP diastolic 56–74
--- NOTE | 2018-07-31 03:43 | NUR ---
TOOK PT'S CARE AROUND 1910; PT. ON BED; SLEEPING; NO C/O PAIN; NO RELATIVE AT BED SIDE DURING REPORT; DURING ASSESSMENT C/O ABD. PAIN; REQUESTED TO REST; NO PRN PAIN MEDICATION GIVEN; AROUND 2300 PRN PAIN MEDICATION DUE C/O ABD PAIN; AT 0100 PT. NO ABLE TO REST; C/O ABD PAIN; HOUSE DECORATOR NOTIFIED; PRN IV MEDICATION GIVEN; PT. ABLE TO REST FOR A FEW HOURS; HAD 3 LOOSE STOOLS DURING THE NIGHT; HOUSE DECORATOR NOTIFIED; STOOL SAMPLE TAKEN; WAITING FOR RESULTS; ASSESSMENT CHARGED; FOLLOWING POC; WILL KEEP MONITORONG; WILL PASS ON REPORT.
[2018-07-31] MEDS ORDERED: LOPRESSOR50 PO (12:00)
[2018-07-31 13:10] LABS: 25-HYDROXY TOTAL 29.9 ng/mL (30.0-100.0)
--- NOTE | 2018-07-31 14:23 | NUR ---
PT. DISCHARGING TODAY TO [facility] FOR SKILLED STAY. FAXED DC ORDERS/SUMMARY TO FACILITY. SPOKE WITH KEVIN IN ADM SHE RECEIVED DC ORDER AND ARRANGED TRANSPORT VIA WC VAN WITH 2L 02 FOR [id number] TODAY. NOTIFIED FAMILY (ALONSO) OF DISCHARGE AND TIME OF TRANSPORT. UNIT NOTIFIED AND CHART COPY PER US. RN TO CALL REPORT TO [phone].
--- NOTE | 2018-07-31 17:09 | NUR ---
ASSESSMENT DOCUMENTED. PT ALERT TO SELF. PRN HYDRALAZINE GIVEN FOR HBP. NO CARDIAC OR RESPIRATORY DISTRESS NOTED. ORDERS GIVEN TO DISCHARGE PT TO SNF. FAMILY NOTIFIED. BARBARA CALLED IN TO K[facility]ISHMA NURSE. PT LEFT THE FACILITY IN A STRETCHER VAN ACCOMPANIED BY THE FAMILY.
== END 2018-07-31 16:30 | DRG 207 ==
LOC: ER 14:49 → EROBS 18:01 → ICU 18:01 → 2N 07-27 16:17
PROVIDERS: Emergency Medicine; Hospitalist; Internal Medicine Gastroenterology; Internal Medicine Nephrology; Internal Medicine Pulmonary Disease; Nurse Practitioner; Pediatrics; Specialist; ADMIT Hospitalist
PROC: 5A1955Z Respiratory Ventilation, Greater than 96 Consecutive Hours (ICD-10-PCS; principal; 2018-07-18)
PROC: B548ZZA Ultrasonography of Superior Vena Cava, Guidance (ICD-10-PCS; 2018-07-19)
PROC: B31N1ZZ Fluoroscopy of Other Upper Arteries using Low Osmolar Contrast (ICD-10-PCS; 2018-07-19)
PROC: 02HV33Z Insertion of Infusion Device into Superior Vena Cava, Percutaneous Approach (ICD-10-PCS; 2018-07-19)
PROC: 5A1D70Z Performance of Urinary Filtration, Intermittent, Less than 6 Hours Per Day (ICD-10-PCS; 2018-07-20)
PROC: 5A1D70Z Performance of Urinary Filtration, Intermittent, Less than 6 Hours Per Day (ICD-10-PCS; 2018-07-23)
PROC: 30233N1 Transfusion of Nonautologous Red Blood Cells into Peripheral Vein, Percutaneous Approach (ICD-10-PCS; 2018-07-25)
PROC: 5A1D70Z Performance of Urinary Filtration, Intermittent, Less than 6 Hours Per Day (ICD-10-PCS; 2018-07-25)
PROC: 5A1D70Z Performance of Urinary Filtration, Intermittent, Less than 6 Hours Per Day (ICD-10-PCS; 2018-07-27)
PROC: 5A1D70Z Performance of Urinary Filtration, Intermittent, Less than 6 Hours Per Day (ICD-10-PCS; 2018-07-30)
DX: J96.01 Acute respiratory failure with hypoxia (principal); N18.6 End stage renal disease; I46.9 Cardiac arrest, cause unspecified; I26.99 Other pulmonary embolism without acute cor pulmonale; J18.9 Pneumonia, unspecified organism; N39.0 Urinary tract infection, site not specified; K86.1 Other chronic pancreatitis; G93.40 Encephalopathy, unspecified; E46 Unspecified protein-calorie malnutrition; I48.92 Unspecified atrial flutter; D62 Acute posthemorrhagic anemia; Z68.1 Body mass index [BMI] 19.9 or less, adult; I12.0 Hypertensive chronic kidney disease with stage 5 chronic kidney disease or end stage renal disease; I48.91 Unspecified atrial fibrillation; E11.22 Type 2 diabetes mellitus with diabetic chronic kidney disease; M06.9 Rheumatoid arthritis, unspecified; I95.9 Hypotension, unspecified; H40.9 Unspecified glaucoma; E78.5 Hyperlipidemia, unspecified; M19.90 Unspecified osteoarthritis, unspecified site; H54.61 Unqualified visual loss, right eye, normal vision left eye; I48.0 Paroxysmal atrial fibrillation; K76.89 Other specified diseases of liver; K80.20 Calculus of gallbladder without cholecystitis without obstruction; R59.1 Generalized enlarged lymph nodes; D63.8 Anemia in other chronic diseases classified elsewhere; Z86.73 Personal history of transient ischemic attack (TIA), and cerebral infarction without residual deficits; Z88.6 Allergy status to analgesic agent; Z88.8 Allergy status to other drugs, medicaments and biological substances; Z79.01 Long term (current) use of anticoagulants; Z87.891 Personal history of nicotine dependence; Z80.0 Family history of malignant neoplasm of digestive organs; Z79.899 Other long term (current) drug therapy; Z99.2 Dependence on renal dialysis
CPT/HCPCS: 10078; 10081; 10203; 32100

== ENCOUNTER 2018-08-15 05:58 | Inpatient (IN) | payer OTHER ==
[~2018-08-15] VITALS: Ht 147.3 cm; Wt 44.5 kg
[~2018-08-15 05:58] MED LIST: ALPHAGAN P5 ML OPHTHALMIC; ARICEPT 5 MG TAB5 MG PO; COREG25 MG PO; COUMADIN 1MG TAB1 M1 PO; DILTIAZEM ER180 MG PO; FLONASE 0.05%50 MCG NASAL; HUMALOG100 UNIT/1 SUBQ; HYDRALAZINE 2525 MG PO; LANTUS SUBQ; LOPERAMIDE 2 MG2 M1 PO; LOPRESSOR50 PO; LORATIDINE 10 M10 M1 PO; LOSARTAN POTASS50 MG PO; LUMIGAN2.5 M1 OPHTHALMIC; MEGESTROL400 MG/11 PO; MOXEZA3 ML OPHTHALMIC; NEPHRO-VITE RX1 TA1 PO; PROBIOTIC1 EAC1 PO; PROTONIX 20 MG20 M1 PO; RENA-VITE TABL0.8 MG PO; RENVELA800 MG PO; ROCALTROL0.25 MCG PO; TESSALON PERLE100 MG PO; TOBREX3.5 GM OPHTHALMIC; TRAMADOL 50 MG50 MG PO; TYLENOL325 MG PO; ZANTAC 150MG T150 MG PO
[2018-08-15 06:00] VITALS: BP 182/100
[2018-08-15] MEDS ORDERED: ALBUTEROL2.5 MG/31 INH (06:06)
[2018-08-15] MEDS ORDERED: HUMALOG100 UNIT/1 SUBQ (06:07)
[2018-08-15] MEDS ORDERED: PREDNISOLONE ACE5 ML OPHTHALMIC (06:07)
[2018-08-15] MEDS ORDERED: RENA-VITE TABL0.8 MG PO (06:08)
[2018-08-15] MEDS ORDERED: TESSALON PERLE100 MG PO (06:09)
[2018-08-15] MEDS ORDERED: LOPERAMIDE 2 MG2 M1 PO (06:09)
[2018-08-15] MEDS ORDERED: CLARITIN10 MG PO (06:10)
[2018-08-15] MEDS ORDERED: COREG25 MG PO (06:13)
[2018-08-15] MEDS ORDERED: NEPHROCAPS SOFT1 CAP PO ×2 (06:13→06:14)
[2018-08-15] MEDS ORDERED: ONDANSETRON HCL4 M2 PO (06:14)
[2018-08-15 06:30] LABS: ABSOLUTE NEUTROPHILS 11.5 thou/uL (1.4-8.2); BASOPHILS 0.2 % (0.0-2.0); EOSINOPHILS 0.9 % (0.0-3.0); HEMATOCRIT 32.6 % (37.0-47.0); HEMOGLOBIN 10.7 gm/dL (12.0-15.0); LYMPHOCYTES 8.6 % (24.0-44.0); MCH 29.7 pg (26.0-34.0); MCHC 32.8 g/dL (28.0-37.0); MCV 90.4 fL (80.0-100.0); MONOCYTES 6.2 % (1.0-8.0); PLATELET COUNT 246 thou/uL (150-400); POLYS 84.1 % (36.0-66.0); RBC 3.61 mil/uL (4.20-5.00); RDW 19.2 % (10.5-14.5); WBC 13.7 thou/uL (4.0-11.0)
[2018-08-15 06:45] LABS: INR 1.2; PROTIME 12.6 Seconds (9.3-11.4)
[2018-08-15 06:50] LABS: APTT 45.5 Seconds (24.5-32.8)
[2018-08-15 06:57] LABS: ALBUMIN 2.3 g/dL (3.4-5.0); CALCIUM 9.3 mg/dL (8.5-10.1); CREATININE 4.3 mg/dL (0.6-1.0); MAGNESIUM 2.1 mg/dL (1.8-2.4); TOTAL BILIRUBIN 0.3 mg/dL (<0.1-1.0); TOTAL PROTEIN 7.1 g/dL (6.4-8.2); TROPONIN-I 0.15 ng/mL (<0.06)
[2018-08-15 07:00] LABS: POTASSIUM 3.3 mmol/L (3.5-5.1)
[2018-08-15 07:16] LABS: BE(vivo) -5.1 mmol/L (-2 to +3); HCO3 18.5 mmol/L (22.0-26.0); PCO2 30.1 mmHg (35.0-45.0); PO2 70.9 mmHg (80.0-100.0); pH 7.407 (7.360-7.450); sO2 94.6 % (92.0-98.0)
[2018-08-15 07:34] LABS: URINE BILIRUBIN NEGATIVE (Negative); URINE BLOOD NEGATIVE (Negative); URINE CLARITY CLEAR; URINE COLOR YELLOW; URINE GLUCOSE-RANDOM* 2+ (Negative); URINE KETONES NEGATIVE (Negative); URINE LEUKOCYTES-REFLEX NEGATIVE (Negative); URINE NITRITE-REFLEX NEGATIVE (Negative); URINE PROTEIN (DIPSTICK) 3+ (Negative); URINE UROBILINOGEN 0.2 E.U./dl (0.2-1.0)
[2018-08-15 07:49] LABS: CASTS None Seen /LPF (None Seen); SQUAMOUS 4-10 Moderate /LPF (0-3)
[2018-08-15 07:50] LABS: BACTERIA-REFLEX 1-9 Few /HPF (None Seen); CRYSTALS None Seen /LPF (None Seen); URINE RBC None Seen /HPF (0-2); URINE WBC-REFLEX 0-5 Rare /HPF (0-5)
[2018-08-15 07:58] LABS: AMP/METHAMP Negative (Negative); BARBITURATES Negative (Negative); BENZODIAZEPINES Negative (Negative); COCAINE Negative (Negative); METHADONE Negative (Negative); OPIATES Negative (Negative); PCP Negative (Negative)
[2018-08-15 08:26] VITALS: BP 136/55
--- NOTE | 2018-08-15 08:32 | NUR ---
ATTEMPTED TO CALL REPORT TO BAKARI IN CCU; SHE REQUESTED SHE CALL ME BACK SHE WAS "IN THE MIDDLE OF GIVING MEDS"
[2018-08-15 08:33] VITALS: BP 132/58
[2018-08-15 09:28] VITALS: BP 139/95
--- NOTE | 2018-08-15 09:44 | NUR ---
vascular access team consulted attempted 2 piv's unable to obtain, vessels too small on ultrasound. WHEN GETTING BLOOD RETURN ON PIV USEING #24G VESSEL BLEW X2. PT HAS REJ STARTED IN ER. DAUGHTER STATES THAT FISTULA IN L ARM NOT SUCCESSFUL DUE TO OCCLUSION. PT HAS MIRI FISTULA. RECOMMENDED TICC LINE TO DAUGHTER AND BAKARI TORRES.
[2018-08-15 12:29] VITALS: BP 124/67
--- NOTE | 2018-08-15 14:43 | NUR ---
Patient admits from [facility] unit with Afib/RVR. Patient with recent hospt stay at [facility] and dc 07/31/18 to [facility]. Patient dializes at [facility]. Spoke with Huma in admissions at [facility] who reports last covered skilled day today the day of admit. Plan f/u with family for planned return to [facility] once stable.
--- NOTE | 2018-08-15 15:22 | NUR ---
FAXED CLINICAL UPDATE TO [facility]POKE WITH SHERLY IN ADM. THAT UPDATE FAXED. DCP TO FOLLOW.
--- NOTE | 2018-08-15 18:18 | NUR ---
PT TO THE UNIT FROM THE ER. MEDS PER JUN - CARDIZEM DRIP RUNNING AT 20MLS AN HOUR HR DOWN INTO THE 70 'S THE [facility] NURSE INSISTED THAT CARDIZEM BE TURNED OFF DURING DAILYSIS DUE TO INFORMATION THAT THE DAUGHTER GAVE THE PATIENT ABOUT -SOME MED THAT SHE WAS GIVEN AT SOME TIME THAT CAUSED HER HEART RATE TO DROP- THIS ULTIMATLEY ACCORDING TO DAUGHTER WHEN SHE CHECKED WITH SISITER WAS ALBUMIN - INFORMED [facility] NURSE THAT CARDIZEM WOULD BE TURNED BACK ON IF PATIENT HR BEGAN TO INCREASE - SHE DID NOT APPEAR HAPPY WITH THIS. PT MAXWELL SMALL AMOUNTS OF DIET AND FLUIDS - REQUIRING TO BE FEED. PATIENT TURNED. PT TO BEGIN DIALYSIS.
[2018-08-15 22:18] VITALS: BP 147/58
[2018-08-16] VITALS (7 sets, daily range): BP systolic 141–171; BP diastolic 51–65
[2018-08-16 04:57] LABS: HEMATOCRIT 26.4 % (37.0-47.0); MCH 29.3 pg (26.0-34.0); MCHC 32.1 g/dL (28.0-37.0); MCV 91.2 fL (80.0-100.0); RBC 2.89 mil/uL (4.20-5.00); RDW 20.1 % (10.5-14.5); WBC 11.5 thou/uL (4.0-11.0)
[2018-08-16 04:58] LABS: HEMOGLOBIN 8.5 gm/dL (12.0-15.0)
--- NOTE | 2018-08-16 05:01 | NUR ---
RECEIVED PT'S CARE AROUND 1930; PT. ON BED; DIALYSIS ON ROOM; CHILDREN AT THE BED SIDE; AWAKE; ORIENTED TO PERSON; C/O TIRENESS; NO C/O PAIN; HR ON THE 80'S; SBP ABOVE 100'S; CARDIZEM TITRATE TO 5 MG/H; NO C/O DIZZINESS OR HEADACHE; BY SON REPORT PT'S C/O OF NO ABLE TO HAVE A BM; DURING ASSESSMENT PT. IMPACTED; BM REMOVED BY NURSE; STOOL MIX OF SOFT AND HARD CONSISTENCY; BROWN; SAMPLE NOT SEND TO LAB DUE TO HARD CONSISTENCY; ABLE TO REST DURING THE NIGHT; HR ON THE 80'S; A-FIB CONTROL; TURNED Q2H; ASSESSMENT CHARGED; FOLLOWING POC; WILL PASS ON REPORT.
[2018-08-16 05:05] LABS: ALBUMIN 1.9 g/dL (3.4-5.0); CALCIUM 8.9 mg/dL (8.5-10.1); CREATININE 4.1 mg/dL (0.6-1.0); PHOSPHORUS 2.8 mg/dL (2.5-4.9); POTASSIUM 3.7 mmol/L (3.5-5.1)
--- NOTE | 2018-08-16 15:49 | NUR ---
Case discussed with the care team. No family here this afternoon. Son was here earlier this morning per nursing. No weekend dc anticipated. Dc plan is to return to snf at [facility]. Will ask for therapy evaluations. Pt dialyzed today.
--- NOTE | 2018-08-16 17:14 | EKG ---
[address] [address] ELECTROCARDIOGRAM REPORT Name: GUILLERMINA JOSHI Room #: 218-P ADM IN M.R.#: [id number] ������������������ Admission: 08/15/18 ������������������ Attend Phys: Vadim Linton Discharge: ������������������ Date of : 46 Report #: [id number] ����������������������������������������������������������������� [id number] THIS REPORT FOR: //name// [facility] ED Test Date: 2018-08-15 Test Time: 06:27:00 Pat Name: GUILLERMINA JOSHI Department: Room: 218 Gender: F Candy Catcher: grace : 1950 Requested By: Ramírez Carney Order Number: [id number] MD: Zachariah Esparza Measurements Intervals [place] Rate: 139 P: 0 [place]: 63 QRS: -24 QRSD: 95 T: 133 QT: 326 QTc: 496 Interpretive Statements Sinus tachycardia Consider left atrial enlargement LVH with secondary repolarization abnormality Anterior ST elevation, probably due to LVH Borderline prolonged QT interval Compared to ECG 07/27/2018 07:45:19 ST (T wave) deviation now present Atrial flutter no longer present 2:1 AV block no longer present Electronically Signed On 08-16-2018 17:14:31 CDT by Zachariah Esparza [email or web address] ��������������������������������������������� <ELECTRONICALLY SIGNED> ���������������������������������������� By: Zachariah Esparza MD ��������������������������������������������� 08/16/18 1714 6 6 Zachariah Esparza MD /EPI
[2018-08-17] VITALS (12 sets, daily range): BP systolic 157–209; BP diastolic 48–79
--- NOTE | 2018-08-17 06:00 | NUR ---
ASSUMED PT'S CARE AT 1900; PT. ON BED; SLEEPING; RELATIVES AT THE BED SIDE; ALERT TO PERSON; NO C/O PAIN THROUGH THE NIGHT; AT 00:24 SBP ON THE 190'S; RE-ASSESSMENT SBP REMAIN ON 190'S; FACILITIES MANAGEMENT EXECUTIVE NOTIFIED; ORDER RECEIVED; DURING RE-ASSESMENT SBP ON THE 190'S; L. ARM BP CHECKED SBP 157; FACILITIES MANAGEMENT EXECUTIVE NOTIFIED; NO NEW ORDERS; REASSESSMENT AFTER ONE HOUR; R ARM SBP 188; L ARM SBP 193; FACILITIES MANAGEMENT EXECUTIVE NOTIFIED; ORDERS RECEIVED; BP WILL BE RE-ASSESS IN THE NEXT HOUR; NO C/O PAIN THROUGH THE NIGHT; ABLE TO REST THROUGH THE NIGHT; 120 CC OF WATER DRUNK; ASSESSMENT CHARGED; FOLLOWIN POC; NO MORNING LABS; WILL PASS ON REPORT.
--- NOTE | 2018-08-17 11:21 | HC ---
[facility] [address] [address] CONSULTATION Name: GUILLERMINA JOSHI Room #: 218-P ADM IN M.R.#: [id number] Admission: 08/15/18 ������������������ Attend Phys: Vadim Linton Discharge: ������������������ Date of : 46 Report #: [id number] THIS REPORT FOR: //name// CC: FAM unknown Vadim Linton DATE OF SERVICE: 08/15/2018 REASON FOR CONSULTATION: End-stage renal disease, in need of dialysis. HISTORY OF PRESENT ILLNESS: A 68-year-old patient known to our service after a hospital admission approximately 1 month ago after having a collapse and possible cardiorespiratory arrest post-dialysis at [facility]. She was stabilized, gradually brought back to her more or less baseline mental status, discharged and over the last two weeks, has been at [place]. This morning was taken to dialysis, was found to be intermittently hypotensive, tachycardic and hypoxemic and brought to the Emergency Room here. PAST MEDICAL HISTORY: She has end-stage renal disease. She had a cardiorespiratory arrest as outlined. She has had previous AFib and flutter and major stroke with left hemiparesis, which has left her unable to effectively converse, but she does communicate some and seems to know what is going on. She also has history of a possible pancreatic tail mass and liver lesions and a history of pulmonary embolism. Her medications at [facility]. HOME MEDICATIONS: Listed as albuterol inhaler, Nephrocaps 1 daily, carvedilol 25 mg b.i.d., Aricept 5 mg daily, hydralazine 37.5 mg q.i.d., insulin, metoprolol 50 mg b.i.d., Megace 400 mg b.i.d., pantoprazole 40 mg daily, eyedrops, sevelamer 800 mg t.i.d. with meals, warfarin, tramadol as well. FAMILY HISTORY: Noncontributory. SOCIAL HISTORY: Now staying at [facility] and she has a daughter who is very attentive and helps care for her over there. REVIEW OF SYSTEMS: Really cannot be effectively taken. Apparently, she has been having some hot spells, otherwise in more or less her usual state. She is able to eat some strictly with her daughter's help. PHYSICAL EXAMINATION: GENERAL: This is a somewhat chronically ill-appearing, somewhat frail and cachectic, elderly woman seen in her hospital bed. SKIN: Otherwise, unremarkable. SKELETAL: Well developed, well nourished. [address] [address] CONSULTATION Name: GUILLERMINA JOSHI Room #: 218-P [facility] IN .R.#: [id number] Admission: 08/15/18 ������������������ Attend Phys: Vadim Linton Discharge: ������������������ Date of : 46 Report #: [id number] HEENT: Extraocular movements difficult to test. Hearing and vision difficult to test. NECK: Supple. CHEST: Shows diminished breath sounds with some crackles at the bases. HEART: Somewhat irregular. ABDOMEN: Soft and appears nontender. EXTREMITIES: Show no edema. NEUROLOGIC: Remarkable for her left hemiparesis. She can move the right side and she does communicate a little bit and even able to say a few words. LABORATORY DATA: Hemoglobin 10.7. Creatinine 4.3, BUN 37. ASSESSMENT AND PLAN: 1. End-stage renal disease. We will dialyze today. We will dialyze on a 4 potassium bath, at this point no ultrafiltration. 2. Atrial fibrillation with intermittent rapid ventricular response. Treatment per primary service and Cardiology. 3. Status post major cerebrovascular accident with left hemiparesis and dysphasia. 4. History of cardiorespiratory arrest. 5. Diabetes mellitus. ��������������������������������������������� <ELECTRONICALLY SIGNED> ���������������������������������������� By: Ab Santamaria MD ��������������������������������������������� 08/17/18 1121 1035 2229 Ab Santamaria MD /nt
[2018-08-17 14:09] LABS: HEP B SURFACE Ab(ANTI-HBS Reactive (()); HEPATITIS B SURFACE AG Negative (Negative)
--- NOTE | 2018-08-17 16:17 | NUR ---
Update given to [facility]. They will need clincial faxed on Monday and will resubmit for SNF auth through [facility]. Pt's dtr in law Shanta was here briefly this afternoon. Back Tender spoke with her over the phone as no return call rec'd from son Cam. Shanta indicates he is not available during work hours and relies on her to get updates and make care arrangements. She indicates that the pt has completed a DPOA for HC at [facility] in the past and they do not have a copy. Release of info faxed to [facility] to request any Ad, living will or DPOA on file there. Shanta reports that they are hoping she can return to the SNf under her skilled benefits for additional therapies. Family is hoping she can return home with them if she regains some of her strength and mobility. They have made arrangements with [facility] to transition to [facility] medicaid pending after her skilled time. Will follow.
--- NOTE | 2018-08-17 16:30 | NUR ---
ASSUMED CARE AT 0700, SHIFT ASSESSMENT DONE, MEDS GIVEN, VSS. HAD DIALYSIS TODAY, 1L WAS REMOVED. APPETITE NOT GOOD. MEDS GIVEN CRUSHED WITH YOUGURT. ON ROOM AIR. DOES NOT REPORT ANY PAIN, NAUSEA, VOMITING. WILL CONTINUE TO ASSESS AND ASSIST WITH ADLs NEEDED.
[2018-08-18] VITALS (9 sets, daily range): BP systolic 128–216; BP diastolic 60–76
--- NOTE | 2018-08-18 04:08 | NUR ---
ASSUMED PT'S CARE AT 1900; PT SLEEPING ON BED; RELATIVE AT THE BED SIDE; WAKES UP AFTER CALLING HER NAME; ST. NOT HAVING PAIN; RUE SBP 199; LUE 188; HS BLOOD PRESSURE MEDICATION GIVEN; RE-ASSESSMENT SBP 156; AT MIDNIGHT SBP OVER THE 200'S; GRANTS ASSISTANT NOTIFIED; ORDERS RECEIVED; PRN BP MEDICATION GIVEN; SBP RE-ASSESSMENT REMAINED ABOVE 200; GRANTS ASSISTANT NOTIFIED; ORDERS RECEIVED; MEDICATION GIVEN; SBP AT RE-ASSESSMENT 139/60; NO C/O HEADACHES OR DIZZINESS; WILL KEEP MONITORING; ASSESSMENT CHARGED; FOLLOWING POC; WILL PASS ON REPORT.
[2018-08-18 05:18] LABS: ALBUMIN 2.2 g/dL (3.4-5.0); CALCIUM 8.4 mg/dL (8.5-10.1); PHOSPHORUS 1.9 mg/dL (2.5-4.9); POTASSIUM 4.2 mmol/L (3.5-5.1)
[2018-08-18 05:21] LABS: CREATININE 1.8 mg/dL (0.6-1.0)
--- NOTE | 2018-08-18 18:17 | NUR ---
ASSUMED CARE OF PT AT 0645. SLEPT WELL. SON AT BEDSIDE, HELPED FEED. MAXWELL MEDS IN PUDDING AND DIET. TURN. PLAN FOR DIALYSIS MWF. PROGRESSING TOWARD PLAN OF CARE.
--- NOTE | 2018-08-19 00:09 | NUR ---
ASSUMED PT CARE AT 1900. VSS BP SLIGHTLY ELEVATED. PT AWAKE AND ORIENTED TO SELF. FAMILY NOT AT BEDSIDE. NIGHT MEDS GIVEN, 6U OF INSULIN GIVEN PER SSI, PILLS CRUSHED IN APPLESAUCE. PT IS STABLE, PT CARE TRANSFERED TO ANOTHER NURSE AT THIS TIME.
[2018-08-19 02:53] VITALS: BP 196/81
[2018-08-19 04:28] LABS: HEMOGLOBIN 9.6 gm/dL (12.0-15.0); MCH 30.4 pg (26.0-34.0); MCHC 33.2 g/dL (28.0-37.0); MCV 91.6 fL (80.0-100.0); RBC 3.16 mil/uL (4.20-5.00); RDW 19.6 % (10.5-14.5); WBC 8.1 thou/uL (4.0-11.0)
[2018-08-19 05:22] VITALS: BP 170/71
--- NOTE | 2018-08-19 05:40 | NUR ---
Assumed care of pt at 2300. Q2h turn. Had 2 BMs overnight. BP elevated. Prn hydralazine administered. Fall precautions in place. Will continue to monitor.
[2018-08-19 08:27] VITALS: BP 151/81
[2018-08-19 12:45] VITALS: BP 158/55
[2018-08-19 17:20] VITALS: BP 166/73
--- NOTE | 2018-08-19 18:23 | NUR ---
ASSUMED CARE AT 0745. SLEEPING BUT AWAKES TO VOICE. NO DENTITION AND VERY HARD TO UNDERSTAND WHEN SPEAKING. ASKING FOR WATER AND THICKENED WATER GIVEN WITH SPOON. EATING APPROX 1/4 OF MEALS. TURNING Q2. L BUTTOCKS WITH FRICTION SHEAR INJURY. PHOTO TAKEN AND DOCUMENTED.
[2018-08-19 21:07] VITALS: BP 184/68
[2018-08-20] VITALS (7 sets, daily range): BP systolic 134–184; BP diastolic 52–69
--- NOTE | 2018-08-20 03:49 | NUR ---
ASSUMED CCARE 190. VSS. ASSESSMENT CHARTED. BP ELEVATED HYDRALYZINE PRN PER EMAR. PT C/O BOTTOM PAIN RELIEVED WITH Q2 TURNS OR MORE FREQUENTLY. PT TO WEAK TO USE CALL LIGHT CALLS OUT. HARD TO UNDERSTAND. TOLERATES THICKENED LIQUIDS MEDS CRUSHED. SMALL SMEAR, ANURIC. PLAN FOR DIALYSIS THIS AM. SON AND FAMILY AT BEDSIDE EARLIER IN NIGHT. WILL CONTINUE TO MONITOR AND WITH POC.
[2018-08-20] MEDS ORDERED: PACERONE 200 M200 M1 PO (08:54)
[2018-08-20] MEDS ORDERED: NORVASC10 MG PO (08:54)
[2018-08-20] MEDS ORDERED: ELIQUIS2.5 MG PO (08:54)
[2018-08-20] MEDS ORDERED: COZAAR 50 MG TA50 M1 PO (08:55)
[2018-08-20] MEDS ORDERED: CEFUROXIME250 MG PO (08:59)
--- NOTE | 2018-08-20 10:10 | NUR ---
ASSUMED CARE AT 0700, SHIFT ASSESSMENT DONE, BP SLIGHTLY ELEVATED. SCHEDULED FOR DIALYSIS TODAY. MEDS GIVEN CRUSHED IN PUDDING/ YOGURT. WORKED WITH PHYSICAL THERAPHY, SAT AT THE EDGE OF THE BED. FREQUENT REPOSITIONING IN BED. ON ROOM AIR. SCDs ON. DENIES ANY PAIN, NAUSEA, VOMITING. WILL CONTINUE TO ASSESS AND ASSIST WITH ADLs NEEDED.
--- NOTE | 2018-08-20 13:31 | NUR ---
PATIENT IS RECEIVING DIALYSIS NOW, STARTED AT 1230, 12 PM MEDS WILL BE ADMINISTERED AFTER COMPLETION OF DIALYSIS.
--- NOTE | 2018-08-20 14:02 | NUR ---
[facility] submitting for auth for post acute care. patient currently rec dialysis. Updated son likely unable to obtain auth today possibly tomorrow but patient is stabe to dc to [facility].
--- NOTE | 2018-08-20 14:52 | NUR ---
FAXED TODAY'S PT NOTES TO [facility] SPOKE WITH SHERLY IN ADM. SHE RECEIVED UPDATE SHE NEEDS OT NOTES FAXED WHEN AVAILABLE PT. IN DIALYSIS RIGHT NOW. DCP TO FOLLOW.
--- NOTE | 2018-08-20 19:46 | NUR ---
HAD DIALYSIS TODAY, TOOK OF 1.8 L. MEDS GIVEN AFTER DIALYSIS. BP BETTER.
--- NOTE | 2018-08-21 05:52 | NUR ---
RECEIVED PT'S CARE AT 1920; PT. ON BED; ALERT TO PERSON; SON AT THE BED SIDE; DURING ASSESSMENT STATED NO HAVING ANY PAIN; ST. FEELING TIRED "MAN I AM TIRED"; "OH MAN I AM TIRED"; REQUESTED NOT TO BE WOKEN UP DURING THE NIGHT; "I DO NOT WANT TO BE WOKEN UP DURING THE NIGHT"; UPSET; FUSSY; EDUCATED ABOUT THE NEED TO BE TURN Q2H; ST. JUST WANT TO SLEEP; REFUSED TURNINGS; TURNED X3 DURING THE NIGHT; HAD 2 LOOSE STRONG MALODOROUS BMS; STOOL SAMPLE SENT TO LAB FOR C.DIFF; REQUESTED WATER IN THE MORNING; GIVEN; ASSESSMENT CHARGED; FOLLOWING POC; WILL PASS ON REPORT.
[2018-08-21 05:59] VITALS: BP 128/66
[2018-08-21 08:05] VITALS: BP 159/60
--- NOTE | 2018-08-21 08:58 | NUR ---
Cont plan for dc to [facility] today once auth rec.
[2018-08-21 10:02] VITALS: BP 159/60
--- NOTE | 2018-08-21 10:59 | NUR ---
Nutrition: Seen for f/u. Information obtained from [facility]. Reports really good intake this AM for breakfast. Unsure of Ensure Pudding/Magic Cup intake. Wt stable x1 month. D/C soon, awaiting insurance authorization.
[2018-08-21 11:50] VITALS: BP 149/62
--- NOTE | 2018-08-21 12:53 | NUR ---
FAXED TODAY'S PT/OT NOTES, DPOA PAPERS TO [facility] SPOKE WITH SHERLY IN ADM. SHE WILL SUBMIT FOR AUTH. DCP TO FOLLOW.
[2018-08-21 15:15] VITALS: BP 132/53
--- NOTE | 2018-08-21 15:29 | NUR ---
PT DISCHARGING TODAY TO [facility] FOR SKILLED STAY. FAXED DC ORDERS/SUMMARY TO FACILITY. DCP ARRANGED TRANSPORT THROUGH [facility] TRIP # [id number] VIA [employer] [facility] THEY WILL GIFT SHOP CLERK PT BETWEEN [phone]. NOTIFIED FAMILY (ALONSO) OF DISCHARGE AND TIME OF TRANSPORT SHE REQUESTING NURSE TO CALL WHEN PT LEAVES FACILITY. UNIT NOTIFIED AND CHART COPY PER US. RN TO CALL REPORT TO [phone].
[2018-08-21] MEDS ORDERED: FIRVANQ50 MG/1 ML PO (15:50)
--- NOTE | 2018-08-21 17:12 | NUR ---
ASSUMED CARE OF PT AT SHIFT CHANGE. ASSESSMETNS CHARTED.MEDS GIVEN PER JUN. PT ALERT AND ORIENTED TO SELF, VSS, PT BEDREST, Q2 TURNS AND BARRIER CREAM ENFORCED. PT POSITIVE FOR C DIFF, ISOLATION MAINTAINED, PHYSICIAN NOTIFIED. ORDERS RECEIVED. PT ATE MEALS WELL THIS SHIFT WITH ASSISTANCE. O2 SATS WNL ON ROOM AIR, NO S/SX OF CARD OR RESP DISTRESS NOTED. SW FOLLOWING FOR DC TO FACILITY, AUTH OBTAINED, REPORT CALLED TO VIOLETTA AT [facility]. FAMILY NOTIFIED AND UPDATED OF PT DISCHARGE. PT LEFT UNIT WITH ALL DC PAPERWORK, AND BELONGINGS. IV REMOVED, TELE REMOVED.
== END 2018-08-21 17:17 | DRG 177 ==
LOC: ER 05:58 → EROBS 07:39 → 2N 07:39
PROVIDERS: Emergency Medicine; Internal Medicine Nephrology; ADMIT Hospitalist
PROC: 5A1D70Z Performance of Urinary Filtration, Intermittent, Less than 6 Hours Per Day (ICD-10-PCS; principal; 2018-08-15)
PROC: 5A1D70Z Performance of Urinary Filtration, Intermittent, Less than 6 Hours Per Day (ICD-10-PCS; 2018-08-17)
PROC: 5A1D70Z Performance of Urinary Filtration, Intermittent, Less than 6 Hours Per Day (ICD-10-PCS; 2018-08-20)
PROC: 5A1D70Z Performance of Urinary Filtration, Intermittent, Less than 6 Hours Per Day (ICD-10-PCS; 2018-08-21)
DX: J15.6 Pneumonia due to other Gram-negative bacteria (principal); N18.6 End stage renal disease; I69.354 Hemiplegia and hemiparesis following cerebral infarction affecting left non-dominant side; E46 Unspecified protein-calorie malnutrition; E87.1 Hypo-osmolality and hyponatremia; I12.0 Hypertensive chronic kidney disease with stage 5 chronic kidney disease or end stage renal disease; E11.22 Type 2 diabetes mellitus with diabetic chronic kidney disease; I48.2 Chronic atrial fibrillation; H54.40 Blindness, one eye, unspecified eye; H40.9 Unspecified glaucoma; I48.0 Paroxysmal atrial fibrillation; I27.20 Pulmonary hypertension, unspecified; E86.0 Dehydration; K56.41 Fecal impaction; D63.8 Anemia in other chronic diseases classified elsewhere; M62.84 Sarcopenia; E87.6 Hypokalemia; F03.90 Unspecified dementia, unspecified severity, without behavioral disturbance, psychotic disturbance, mood disturbance, and anxiety; R13.19 Other dysphagia; M06.9 Rheumatoid arthritis, unspecified; E11.65 Type 2 diabetes mellitus with hyperglycemia; I69.391 Dysphagia following cerebral infarction; Z86.74 Personal history of sudden cardiac arrest; Z68.20 Body mass index [BMI] 20.0-20.9, adult; Z99.2 Dependence on renal dialysis; Z79.01 Long term (current) use of anticoagulants; Z79.4 Long term (current) use of insulin; Z79.899 Other long term (current) drug therapy; Z88.5 Allergy status to narcotic agent; Z88.8 Allergy status to other drugs, medicaments and biological substances
CPT/HCPCS: 10081; 10194; 32100

== ENCOUNTER 2018-09-03 19:41 | Inpatient (IN) | payer OTHER ==
[~2018-09-03] VITALS: Ht 144.8 cm; Wt 43.5 kg
--- NOTE | ~2018-09-03 | HC ---
[facility] [place] [address] [place] [address] CONSULTATION Name: GUILLERMINA JOSHI Room #: 451-P ADM IN M.R.#: [id number] Admission: 09/03/18 ������������������ Attend Phys: Jose A Alonso MD Discharge: ������������������ Date of : 46 Report #: [id number] THIS REPORT FOR: //name// CC: Jose A KEARNEY unknown REASON FOR PRESENTATION: Brought by her family because of mental status issues. HISTORY OF PRESENT ILLNESS: Limited due to the patient's mental status issues. She is a well-known patient to me. She is a 68-year-old with severe comorbid conditions including end-stage renal disease, AFib, blindness, CVA, pulmonary hypertension, who is maintained on hemodialysis every Monday, Monday and Monday. Her son was visiting with her and he reported to the nursing staff in her nursing facility that she has mental status issues. She was brought for further evaluation and management. Son is at bedside and is telling me that she got dialyzed for a short period of time yesterday. Treatment was aborted for unclear reasons to me. The patient has been in the hospital on numerous occasions in the last couple of months. In fact, she has been in the hospital during the months of June, July, August. I had seen her initially back in June after a collapse event after finishing her dialysis. PAST MEDICAL HISTORY: 1. Status post cardiac arrest. 2. CVA. 3. Hypertension. 4. Hyperlipidemia. 5. End-stage renal disease. 6. Atrial fibrillation/flutter. SOCIAL HISTORY: She resides in the [facility]. FAMILY HISTORY: Significant for diabetes mellitus per the son. REVIEW OF SYSTEMS: Unobtainable given the patient's mental status. MEDICATIONS: 1. Vancomycin. 2. Amiodarone. 3. Amlodipine. 4. Losartan. 5. Pantoprazole. 6. Ranitidine. 7. Folic acid. PHYSICAL EXAMINATION: GENERAL: She is confused, legally blind. VITAL SIGNS: Blood pressure is 150/90. [facility] [address] [place] [address] CONSULTATION Name: GUILLERMINA JOSHI Room #: [facility] IN .R.#: [id number] Admission: 09/03/18 ������������������ Attend Phys: Jose A Alonso MD Discharge: ������������������ Date of : 46 Report #: [id number] HEAD AND NECK: No jugular venous distention. CHEST: Decreased air entry bilaterally with crackles. CARDIOVASCULAR: No rub. ABDOMEN: Soft, nontender. LOWER EXTREMITIES: +1 edema. LABORATORY DATA: Reviewed. White blood cell count 15.7. Sodium 140, potassium 5.2. Chest x-ray: Mild pulmonary venous congestion. ASSESSMENT, IMPRESSION AND PLAN: 1. End-stage renal disease. 2. Elevated white blood cell count. 3. Multiple comorbidities including atrial fibrillation/flutter, pulmonary hypertension, status post arrest. 4. Severe debility. 5. We will give the patient an extra treatment today given her chest x-ray finding. 6. Severe comorbidities with repeated admissions. I really think that we should discuss palliative and comfort care along with hospice arrangement with the family members. ��������������������������������������������� ���������������������������������������� By: ��������������������������������������������� [phone] David Lugo MD /nt
--- NOTE | ~2018-09-03 | HC ---
[facility] [place] [address] CONSULTATION Name: GUILLERMINA JOSHI Room #: 202-P [facility] IN M.R.#: [id number] Admission: 09/03/18 ������������������ Attend Phys: Jose A Alonso MD Discharge: 09/06/18 ������������������ Date of : 48 Report #: [id number] THIS REPORT FOR: //name// CC: Jose A KEARNEY unknown DATE OF SERVICE: 09/05/2018 PALLIATIVE CARE CONSULTATION CHIEF COMPLAINT: Altered mental status. HISTORY OF PRESENT ILLNESS: The patient is a 68-year-old female with a history of respiratory failure, recent intubation; healthcare-associated pneumonia and urinary tract infection. She presented again from her outlying facility and had altered mental status and appeared to have worsening respiratory failure, previously a resident of [facility]. She has a history of end-stage renal disease and she was on hemodialysis prior to arrival. The patient apparently had missed hemodialysis over this last week due to intolerance due to hypertension. The patient ____ with healthcare-associated pneumonia ____ urine infection again ____ at this point in time is nonresponsive, had required BiPAP at that point, but no longer is on nasal cannula. She did have significant ____ responses. She ____ any intelligible words at this time. I attempted to contact family and did reach a [id number] and she wanted to have a discussion tomorrow morning at 08:30. PAST MEDICAL HISTORY: Atrial fibrillation, end-stage renal disease, hypertension, hyperkalemia, diabetes mellitus type 2 and dementia. ALLERGIES: CODEINE AND STATINS. FAMILY HISTORY: Noncontributory. SOCIAL HISTORY: Durable power of contract attorney is the patient's son, Cam. MEDICATIONS: Prior to arrival, metoprolol, Eliquis, amiodarone, Norvasc, losartan, Ceftin, brimonidine, Protonix, Aricept, Zantac, Megace, Renvela and loratadine. REVIEW OF SYSTEMS: Unable to obtain due to present condition. PHYSICAL EXAMINATION: VITAL SIGNS: Included a temperature of 36.5, pulse 92, respirations 20, blood pressure 112/56 and 100% on nasal cannula. GENERAL: Again, the patient is not alert, although she will respond in nonsensical verbal responses. She is not opening her eyes at this time. [address] [address] CONSULTATION Name: GUILLERMINA JOSHI Room #: 202-P [facility] IN M.R.#: [id number] Admission: 09/03/18 ������������������ Attend Phys: Jose A Alonso MD Discharge: 09/06/18 ������������������ Date of : 46 Report #: [id number] HEENT: Again, difficult to assess at this time. CARDIOVASCULAR: Tachycardia, irregular. RESPIRATORY: Diffuse rales that are coarse are noted. ABDOMEN: Soft, perhaps mild tenderness based on grimace. EXTREMITIES: No significant edema at this time. LABORATORY DATA: Labs included white blood cell 13.7, hemoglobin 8.5. Potassium 5.2, creatinine 5.7. ASSESSMENT AND PLAN: 1. Delirium. I have set up a meeting for tomorrow morning at 08:30 to discuss further with regards to palliative care questions and to get DPOA for this discussion. She is currently full code. Certainly, I do not believe the patient would benefit from this, given her overall medical status. Additionally, she currently has dialysis, although certainly it appears that she is intolerant of this at this time. I do feel like she has a poor overall prognosis and I will discuss this with family tomorrow. 2. Healthcare-associated pneumonia. Again, this is recurrent, possibly even aspiration type. This is a poor prognosis given her previous CVD. 3. End-stage renal disease. Again, I appreciate Dr. Lugo's consult and I do feel that she is probably a poor candidate for continued dialysis. Thank you very much for the consultation. We will follow up as soon as I have a discussion with family. ��������������������������������������������� ���������������������������������������� By: ��������������������������������������������� [id number] Brandon Castellanos DO /nt
[~2018-09-03 19:41] MED LIST changes: +ALBUTEROL2.5 MG/31 INH; +CEFUROXIME250 MG PO; +CLARITIN10 MG PO; +COZAAR 50 MG TA50 M1 PO; +ELIQUIS2.5 MG PO; +FIRVANQ50 MG/1 ML PO; +NEPHROCAPS SOFT1 CAP PO; +NORVASC10 MG PO; +ONDANSETRON HCL4 M2 PO; +PACERONE 200 M200 M1 PO; +PREDNISOLONE ACE5 ML OPHTHALMIC
[2018-09-03 19:42] VITALS: BP 191/65
[2018-09-03 20:49] LABS: HEMATOCRIT 26.5 % (37.0-47.0); HEMOGLOBIN 8.4 gm/dL (12.0-15.0); MCH 29.5 pg (26.0-34.0); MCHC 31.9 g/dL (28.0-37.0); MCV 92.7 fL (80.0-100.0); PLATELET COUNT 302 thou/uL (150-400); RBC 2.86 mil/uL (4.20-5.00); RDW 18.3 % (10.5-14.5); WBC 13.9 thou/uL (4.0-11.0)
[2018-09-03 20:59] LABS: ANION GAP 14 mmol/L (7-16); BUN 41 mg/dL (7-18); CALCIUM 9.8 mg/dL (8.5-10.1); CHLORIDE 102 mmol/L (98-107); CO2 22 mmol/L (21-32); CREATININE 5.4 mg/dL (0.6-1.0); GLUCOSE 228 mg/dL (74-106); POTASSIUM 5.3 mmol/L (3.5-5.1); SODIUM 138 mmol/L (136-145)
[2018-09-03 21:08] LABS: ALBUMIN 2.3 g/dL (3.4-5.0); SGOT 17 U/L (15-37); SGPT 10 U/L (30-65); TOTAL BILIRUBIN 0.5 mg/dL (<0.1-1.0); TOTAL PROTEIN 7.6 g/dL (6.4-8.2); TROPONIN-I <0.06 ng/mL (<0.06)
[2018-09-03 21:22] LABS: URINE BLOOD 3+ (Negative); URINE CLARITY CLOUDY; URINE COLOR BROWN; URINE GLUCOSE-RANDOM* NEGATIVE (Negative); URINE KETONES 1+ (Negative); URINE LEUKOCYTES-REFLEX 3+ (Negative); URINE NITRITE-REFLEX POSITIVE (Negative); URINE PROTEIN (DIPSTICK) 3+ (Negative)
[2018-09-03 21:26] LABS: ICTOTEST (BILI CONFIRMATORY) Negative (Negative); SQUAMOUS 0-3 Few /LPF (0-3); URINE BILIRUBIN NEGATIVE (Negative); URINE WBC-REFLEX >25 Many /HPF (0-5); YEAST-REFLEX Present (None Seen)
[2018-09-03 21:27] LABS: BACTERIA-REFLEX 1-9 Few /HPF (None Seen); CASTS None Seen /LPF (None Seen); CRYSTALS None Seen /LPF (None Seen); URINE RBC 0-2 Rare /HPF (0-2)
[2018-09-03 21:32] LABS: ABSOLUTE NEUTROPHILS 11.3 thou/uL (1.4-8.2); ATYPICAL LYMPHS 1 %
[2018-09-03 21:33] LABS: ANISOCYTOSIS 2+
[2018-09-03 22:26] VITALS: BP 176/68
[2018-09-03 23:08] VITALS: BP 135/75
[2018-09-04 03:09] VITALS: BP 152/90
[2018-09-04 05:32] LABS: HEMOGLOBIN 8.5 gm/dL (12.0-15.0); MCH 29.4 pg (26.0-34.0); MCHC 31.4 g/dL (28.0-37.0); MCV 93.7 fL (80.0-100.0); RBC 2.88 mil/uL (4.20-5.00); RDW 18.5 % (10.5-14.5); WBC 15.7 thou/uL (4.0-11.0)
[2018-09-04 05:39] LABS: CALCIUM 9.7 mg/dL (8.5-10.1); CREATININE 5.7 mg/dL (0.6-1.0); POTASSIUM 5.2 mmol/L (3.5-5.1)
[2018-09-04 07:33] VITALS: BP 161/75
--- NOTE | 2018-09-04 09:09 | EKG ---
[address] [place] [address] ELECTROCARDIOGRAM REPORT Name: GUILLERMINA JOSHI Room #: 451-P ADM IN M.R.#: [id number] ������������������ Admission: 09/03/18 ������������������ Attend Phys: Jose A Alonso MD Discharge: ������������������ Date of : 46 Report #: [id number] ����������������������������������������������������������������� [id number] THIS REPORT FOR: //name// [facility] ED Test Date: 2018-09-03 Test Time: 20:45:24 Pat Name: GUILLERMINA JOSHI Department: Room: [facility] Gender: F Yarn Inspector: ROMELIA : 1950 Requested By: Lisa Ross Order Number: [id number] MD: Kosta Wheeler Measurements Intervals [place] Rate: 97 P: 107 [place]: 205 QRS: -16 QRSD: 97 T: 139 QT: 341 QTc: 433 Interpretive Statements Sinus rhythm Abnormal R-wave progression, early transition LVH with secondary repolarization abnormality Compared to ECG 08/15/2018 06:27:00 Sinus tachycardia no longer present ST (T wave) deviation less prominent Electronically Signed On 09-04-2018 9:09:48 CDT by Kosta Wheeler [email or web address] ��������������������������������������������� <ELECTRONICALLY SIGNED> ���������������������������������������� By: Kosta Wheeler MD, [facility] ��������������������������������������������� 09/04/18 0909 44 44 Kosta Wheeler MD, [facility] /EPI
[2018-09-04 15:57] VITALS: BP 142/42
[2018-09-04 16:50] VITALS: BP 123/42
[2018-09-04 20:30] VITALS: BP 114/79
[2018-09-05] VITALS (9 sets, daily range): BP systolic 106–129; BP diastolic 28–56
--- NOTE | 2018-09-05 08:09 | EKG ---
[place] [address] [facility] [address] [place] [address] ELECTROCARDIOGRAM REPORT Name: GUILLERMINA JOSHI Room #: 202-P ADM IN M.R.#: [id number] ������������������ Admission: 09/03/18 ������������������ Attend Phys: Jose A Alonso MD Discharge: ������������������ Date of : 46 Report #: [id number] ����������������������������������������������������������������� [id number] THIS REPORT FOR: //name// [facility] Test Date: 2018-09-04 Test Time: 12:56:06 Pat Name: GUILLERMINA JOSHI Department: Room: 202 Gender: F Supervisor Delivery Department: Marvin BALTAZAR : 1950 Requested By: David Lugo Order Number: [id number] MD: Kosta Wheeler Measurements Intervals [place] Rate: 134 P: -33 [place]: 118 QRS: -24 QRSD: 96 T: 160 QT: 295 QTc: 441 Interpretive Statements Atrial fibrillation with a rapid ventricular response Nonspecific ST and T wave abnormality LVH Compared to ECG 09/03/2018 20:45:24 Sinus rhythm no longer present Electronically Signed On 09-05-2018 8:09:27 CDT by Kosta Wheeler [email or web address] ��������������������������������������������� <ELECTRONICALLY SIGNED> ���������������������������������������� By: Kosta Wheeler MD, [facility] ��������������������������������������������� 09/05/18 0809 [id number] Kosta Wheeler MD, [facility] /EPI
== END 2018-09-06 00:21 | DRG 177 ==
LOC: ER 19:41 → EROBS 21:44 → 2N 21:44 → 4W 21:44 → 2N 09-04 16:53
PROVIDERS: Nurse Practitioner Family; Student in an Organized Health Care Education/Training Program; ADMIT Hospitalist
DX: J69.0 Pneumonitis due to inhalation of food and vomit (principal); G92 Toxic encephalopathy; N18.6 End stage renal disease; N39.0 Urinary tract infection, site not specified; K86.1 Other chronic pancreatitis; I12.0 Hypertensive chronic kidney disease with stage 5 chronic kidney disease or end stage renal disease; I48.91 Unspecified atrial fibrillation; H54.62 Unqualified visual loss, left eye, normal vision right eye; H40.9 Unspecified glaucoma; E78.5 Hyperlipidemia, unspecified; F03.90 Unspecified dementia, unspecified severity, without behavioral disturbance, psychotic disturbance, mood disturbance, and anxiety; R41.0 Disorientation, unspecified; I27.20 Pulmonary hypertension, unspecified; Z51.5 Encounter for palliative care; E11.22 Type 2 diabetes mellitus with diabetic chronic kidney disease; R31.0 Gross hematuria; M06.9 Rheumatoid arthritis, unspecified; D64.9 Anemia, unspecified; Z79.4 Long term (current) use of insulin; Z86.73 Personal history of transient ischemic attack (TIA), and cerebral infarction without residual deficits; Z88.6 Allergy status to analgesic agent; Z83.3 Family history of diabetes mellitus; Z79.899 Other long term (current) drug therapy; Z99.2 Dependence on renal dialysis
CPT/HCPCS: 10045; 10081; 32100